=== PATIENT | female | born 1945 | race Caucasian/White ===

== ENCOUNTER → 2017-05-25 | Outpatient (CLI) | payer BC ==
[~2017-05-25] MED LIST: BIOT1CAP8 PO; CITA20TA9 PO; HYDR-5688 PO; LEVO100T7 PO; SIMV40TA2 PO; TAMS0.4C38 PO
[2017-05-25 13:41] LABS: URINE APPEARANCE CLEAR (CLEAR); URINE BILIRUBIN NEG (NEG); URINE COLOR DK YELLOW; URINE NITRITE NEG (NEG); URINE PH 6.5 (4.5-7.5); URINE SPECIFIC GRAVITY 1.022 (1.000-1.030); UROBILINOGEN NEG (NEG)
[2017-05-25 13:42] LABS: MANUAL MICROSCOPIC REQUIRED? NO; REVIEW REQ? NO
== END | disposition home or self-care (01) ==
LOC: C.LABBFT 11:24
PROVIDERS: ATTEND Physician Assistant Medical
DX: R39.9 Unspecified symptoms and signs involving the genitourinary system (principal)

== ENCOUNTER 2017-06-19 09:56 | Emergency (ER) | payer BC ==
[~2017-06-19] VITALS: Ht 154.9 cm; Wt 75.0 kg
[2017-06-19 10:03] VITALS: TEMP 36.5; Ht 154.9 cm; Wt 75.0 kg
[2017-06-19] MEDS ORDERED: SIMV40TA2 PO (10:23)
[2017-06-19] MEDS ORDERED: BIOT1CAP8 PO (10:23)
[2017-06-19] MEDS ORDERED: LEVO100T7 PO (10:23)
[2017-06-19] MEDS ORDERED: CITA20TA9 PO (10:23)
[2017-06-19] MEDS ORDERED: SODIUM CHLORIDE 0.9% 250ML 250 ML IV STA (10:53)
[2017-06-19] MEDS ORDERED: ONDANSETRON INJ 2 MG/ML 2 ML VIAL IV STA (10:53)
[2017-06-19] MEDS ORDERED: SODIUM CHLORIDE 0.9% 1000ML 1,000 ML IV STA (10:53)
[2017-06-19] MEDS ORDERED: MoRPHine SULFATE 2 MG/ML CARP IV STA ×2 (10:53→13:28)
[2017-06-19 11:19] LABS: BASO % 0.3 %; BASO ABS # 0.02 K/uL (0-0.2); COMPLETE YES; EOS % 1.6 %; HEMATOCRIT 46.3 % (37-47); IG% 0.3 %; LYMPH % 32.8 %; LYMPH ABS # 2.01 K/uL (1.2-3.4); MEAN CELL VOLUME 91.5 fL (80-100); MEAN CORPUSCULAR HEMOGLOBIN 31.6 pg (25-34); MEAN CORPUSCULAR HGB CONC 34.6 g/dl (32-36); MEAN PLATELET VOLUME 9.9 fL (7.4-10.4); MONO % 8.3 %; NEUT % 56.7 %; PLATELET COUNT 262 K/uL (130-400); RED BLOOD COUNT 5.06 M/uL (4.2-5.4); WHITE BLOOD COUNT 6.13 K/uL (4.8-10.8)
--- NOTE | 2017-06-19 11:25 | EMERGENCY ROOM VISIT NOTE ---
History Report prepared by Zev: Ken Singh Under the Supervision of: Dr. Elaina Taylor M.D. First contact with patient: 10:41 Chief Complaint: ABDOMINAL PAIN Stated Complaint: STOMACH PAINS Nursing Triage Summary: Pt c/o lower right abdominal pain x 1 hour. Associates Nausea, denies vomiting and diarrhea but "I've gone to the bathroom a lot" History of Present Illness The patient is a 71 year old female who presents to the Emergency Room with complaints of constant, right lower quadrant abdominal pain beginning this morning. The patient states that her pain is localized and does not radiate anywhere. She reports that she has been nauseous, vomiting, and having more frequent, normal, bowel movements. The patient notes that she did not eat anything out of the ordinary. She states that she takes an anxiety pill, cholesterol pill, and thyroid pill daily, and she thinks she vomited them up. The patient denies a history of diabetes mellitus, heart disease, kidney disease , back pain, hematochezia, and chest pain. She reports she has a history of a tubal ligation. Source of History: patient Onset: this morning Position: abdomen (RLQ) Quality: other (localized) Timing: constant Associated Symptoms: + nausea, + vomiting, No chest pain, No hematochezia Note: Associated symptoms: more frequent, normal, bowel movements Review of Systems See HPI for pertinent positives & negatives. A total of 10 systems reviewed and were otherwise negative. Past Medical & Surgical Medical Problems: (1) Anxiety Family History Patient reports no known family medical history. Social History Smoking Status: Never Smoker Marital Status: Housing Status: lives with significant other Occupation Status: retired Current/Historical Medications Scheduled Biotin (Biotin), 1 MG PO QAM Citalopram Hydrobromide (Celexa), 20 MG PO QAM Levothyroxine Sodium (Levothyroxine Sodium), 100 MCG PO QAM Simvastatin (Zocor), 40 MG PO QPM Tamsulosin Hcl (Flomax), 0.4 MG PO DAILY Scheduled PRN Hydrocodone/Acetaminophen 5MG/325MG ([place] 5MG/325MG), 1 TABLET PO q4-6 PRN for Pain Allergies Coded Allergies: No Known Allergies (Unverified , 06/19/17) Physical Exam Vital Signs Date Time Temp Pulse Resp B/P (MAP) Pulse Ox O2 Delivery O2 Flow Rate FiO2 06/19/17 13:52 67 16 184/90 96 Room Air 06/19/17 11:55 61 20 189/98 96 Room Air 06/19/17 11:19 70 06/19/17 11:16 66 16 181/98 99 Room Air 06/19/17 10:03 36.5 68 20 180/97 99 Room Air Physical Exam Vital signs reviewed. General: Well-appearing 71 year old female, in no significant distress. HEENT: No scleral icterus, PERRLA, neck supple. Atraumatic. Cardiovascular: Regular rate and rhythm, no extra sounds. Pulmonary: Clear to auscultation bilaterally, normal work of breathing. Abdomen: Soft, nondistended, positive bowel sounds. Mildly tender to palpation over the right lower quadrant, no rebounding, no guarding Musculoskeletal: Atraumatic, no peripheral edema. Neurologic: Patient awake alert and oriented x 3, full strength in all 4 extremities. Cranial nerves 2 through 12 grossly intact. Skin: Warm, dry, no rash Medical Decision & Procedures ER Provider Diagnostic Interpretation: ABD/PELVIS IV CONTRAST ONLY HISTORY: 71 years-old Female acute right lower quadrant abdominal pain COMPARISON: CT abdomen 10/08/2008 TECHNIQUE: Multiple axial CT images of the abdomen and pelvis were obtained following the intravenous administration of 93 mL Optiray 320. A dose lowering technique was used consistent with the principals of AZUCENA. FINDINGS: There is mild bibasilar atelectasis. No pneumoperitoneum identified. The imaged inferior cardiac chambers are unremarkable. The liver, spleen, pancreas and adrenal glands are unremarkable. There is a focal area of fundal enhancement involving the gallbladder suggesting fundal adenomyomatosis or polyp, 6 x 1 x 7 mm. The left kidney and ureter appear normal. There is a 2 x 3 mm stone of the right ureterovesicular junction which causes moderate right-sided hydroureteronephrosis with delayed nephrogram and mild perinephric edema. There is abnormal contrast with ill-defined margins seen adjacent to the stone suggesting contrast collection from the ureter. Enhancing mass within this distribution is thought to be less likely. Urinary bladder is unremarkable. Calcified fibroids of the right fundal uterus are noted. There is a mild amount of nonspecific endometrial fluid present. Moderate atherosclerotic plaquing of the abdominal aorta is present. No bulky adenopathy. There is no bowel obstruction. The majority of the colon is collapsed. There is no evidence of acute appendicitis. Soft tissues are unremarkable. Facet arthropathy is seen throughout the lumbar spine. IMPRESSION: 1. 2 x 3 mm stone of the right ureterovesicular junction causes moderate right-sided hydroureteronephrosis with delayed renal function. Additionally, there is abnormal ill-defined contrast seen near the right ureterovesicular junction adjacent to the stone suggesting contrast pulling from the obstruction. Abnormal enhancement within a mural bladder neoplasm is thought to be less likely. This can be confirmed with cystoscopy. 2. Small polyp or fundal adenomyomatosis of the gallbladder. 3. Partially calcified fundal uterine fibroid. Nonspecific fluid is seen within the endometrial cavity. These findings could be further evaluated with dedicated pelvic ultrasound. The above report was generated using voice recognition software. It may contain grammatical, syntax or spelling errors. Electronically signed by: Bandar Rangel M.D. 06/19/2017 1:10 PM Dictated Date/Time: 06/19/2017 1:03 PM Laboratory Results 06/19/17 10:15 Red Blood Count 5.06, Mean Corpuscular Volume 91.5, Mean Corpuscular Hemoglobin 31.6, Mean Corpuscular Hemoglobin Concent 34.6, Mean Platelet Volume 9.9, Neutrophils (%) (Auto) 56.7, Lymphocytes (%) (Auto) 32.8, Monocytes (%) (Auto) 8.3, Eosinophils (%) (Auto) 1.6, Basophils (%) (Auto) 0.3, Neutrophils # (Auto) 3.47, Lymphocytes # (Auto) 2.01, Monocytes # (Auto) 0.51, Eosinophils # (Auto) 0.10, Basophils # (Auto) 0.02 06/19/17 10:15 Test 06/19/17 10:15 White Blood Count 6.13 K/uL (4.8-10.8) Red Blood Count 5.06 M/uL (4.2-5.4) Hemoglobin 16.0 g/dL (12.0-16.0) Hematocrit 46.3 % (37-47) Mean Corpuscular Volume 91.5 fL (80-100) Mean Corpuscular Hemoglobin 31.6 pg (25-34) Mean Corpuscular Hemoglobin Concent 34.6 g/dl (32-36) Platelet Count 262 K/uL (130-400) Mean Platelet Volume 9.9 fL (7.4-10.4) Neutrophils (%) (Auto) 56.7 % Lymphocytes (%) (Auto) 32.8 % Monocytes (%) (Auto) 8.3 % Eosinophils (%) (Auto) 1.6 % Basophils (%) (Auto) 0.3 % Neutrophils # (Auto) 3.47 K/uL (1.4-6.5) Lymphocytes # (Auto) 2.01 K/uL (1.2-3.4) Monocytes # (Auto) 0.51 K/uL (0.11-0.59) Eosinophils # (Auto) 0.10 K/uL (0-0.5) Basophils # (Auto) 0.02 K/uL (0-0.2) RDW Standard Deviation 42.9 fL (36.4-46.3) RDW Coefficient of Variation 12.9 % (11.5-14.5) Immature Granulocyte % (Auto) 0.3 % Immature Granulocyte # (Auto) 0.02 K/uL (0.00-0.02) Urine Color YELLOW Urine Appearance TURBID (CLEAR) Urine pH 8.5 (4.5-7.5) Urine Specific [place] 1.016 (1.000-1.030) Urine Protein 1+ (NEG) Urine Glucose (UA) NEG (NEG) Urine Ketones NEG (NEG) Urine Occult Blood NEG (NEG) Urine Nitrite NEG (NEG) Urine Bilirubin NEG (NEG) Urine Urobilinogen NEG (NEG) Urine Leukocyte Esterase NEG (NEG) Urine WBC (Auto) 1-5 /hpf (0-5) Urine RBC (Auto) 0-4 /hpf (0-4) Urine Hyaline Casts (Auto) 0 /lpf (0-5) Urine Epithelial Cells (Auto) 10-20 /lpf (0-5) Urine Bacteria (Auto) NEG (NEG) Anion Gap 10.0 mmol/L (3-11) Est Creatinine Clear Calc Drug Dose 57.4 ml/min Estimated GFR () 82.9 Estimated GFR (Non- 71.5 BUN/Creatinine Ratio 14.1 (10-20) Calcium Level 9.2 mg/dl (8.5-10.1) Total Bilirubin 0.5 mg/dl (0.2-1) Direct Bilirubin mg/dl (0-0.2) Aspartate Amino Transf (AST/SGOT) 19 U/L (15-37) Alanine Aminotransferase (ALT/SGPT) 21 U/L (12-78) Alkaline Phosphatase 101 U/L (45-117) Total Protein 7.8 gm/dl (6.4-8.2) Albumin 3.9 gm/dl (3.4-5.0) Lipase 143 U/L (73-393) Chemistry Specimen Hemolysis Laboratory results per my review. Medications Administered Medications (Trade) Dose Ordered Sig/Tari Route Start Time Stop Time Status Last Admin Dose Admin Sodium Chloride 250 ml @ 999 mls/hr Q16M STAT IV 06/19/17 10:53 06/19/17 11:08 DC 06/19/17 11:14 999 MLS/HR Sodium Chloride 1,000 ml @ 125 mls/hr Q8H STAT IV 06/19/17 10:53 06/19/17 14:28 DC 06/19/17 11:14 125 MLS/HR Ondansetron HCl (Zofran Inj) 4 mg NOW STAT IV 06/19/17 10:53 06/19/17 10:55 DC 06/19/17 11:14 4 MG Morphine Sulfate (MoRPHine SULFATE INJ) 2 mg NOW STAT IV 06/19/17 10:53 06/19/17 10:55 DC 06/19/17 11:14 2 MG Tamsulosin HCl (Flomax Cap) 0.4 mg NOW ONCE PO 06/19/17 13:30 06/19/17 13:31 DC 06/19/17 13:47 0.4 MG Morphine Sulfate (MoRPHine SULFATE INJ) 2 mg NOW STAT IV 06/19/17 13:28 06/19/17 13:30 DC 06/19/17 13:47 2 MG ED Course 1051: Past medical records reviewed. The patient was evaluated in room B04B. A complete history and physical examination was performed. 1053: Ordered Morphine Sulfate 2mg IV, Ondansetron HCl 4mg IV, Sodium Chloride 1000 ml @ 125 mls/hr IV, Sodium Chloride 250 ml @ 999 mls/hr IV 1328: Ordered Morphine Sulfate 2mg IV 1330: Ordered Tamsulosin HCl 0.4mg PO 1331: Upon reevaluation, the patient appeared to have improvement of her symptoms. She still have mild pain, and she is urinating for frequently. I discussed findings with her. She verbalized agreement of the treatment plan. The patient was discharged home. Medical Decision Differential diagnosis: Etiologies such as appendicitis, diverticulitis, PUD, biliary pathology, UTI, pancreatitis, obstruction, mesenteric ischemia, aortic pathology, infections, inflammatory bowel disease, renal colic, as well as others were entertained. This patient was evaluated and appeared to be in some discomfort. IV access was obtained and laboratory work was drawn. Patient was placed on the bus driver/monitor. She was hydrated with normal saline solution. Patient was given IV morphine 2 and Zofran for her pain. CT scan of the abdomen and pelvis was performed and reveals a right ureteral calculus with obstructive changes. The patient was informed of the findings. She was feeling much improved on my reevaluation. Patient was given Flomax. She was discharged with a prescription for [place]. She was advised not to drive or to take Tylenol with this medication. Patient will follow-up with urology and discussed the CT findings. She will return to the ER for worsening of symptoms or any medical concerns. Medication Reconcilliation Current Medication List: was personally reviewed by me Blood Pressure Screening Patient's blood pressure: Elevated blood pressure Blood pressure disposition: Referred to PCP Impression Primary Impression: Renal colic on right side Scribe Attestation The scribe's documentation has been prepared under my direction and personally reviewed by me in its entirety. I confirm that the note above accurately reflects all work, treatment, procedures, and medical decision making performed by me. Departure Information Dispostion Home / Self-Care Prescriptions Tamsulosin Hcl (FLOMAX) 0.4 Mg Cap 0.4 MG PO DAILY for 7 Days, #7 CAP Prov: Elaina Taylor M.D. 06/19/17 Hydrocodone/Acetaminophen 5MG/325MG ([place] 5MG/325MG) Tab 1 TABLET PO q4-6 Y for Pain, #20 TAB Prov: Elaina Taylor M.D. 06/19/17 Referrals Vic Shannon M.D. (PCP) Myla Womack, Kim Bynum M.D. Forms Call Back Authorization, HOME CARE DOCUMENTATION FORM, IMPORTANT VISIT INFORMATION Patient Instructions Kidney Stones Expectant Therapy, My [facility] Additional Instructions Diagnosis: Renal colic Case management will help you establish an appointment with urology for this week. Flomax 0.4 mg daily. Hydrocodone/acetaminophen one tablet every 4 hours as needed for pain. Do not drive or take Tylenol with this medication. Colace 100 mg twice daily for stool softening while you're on the narcotics. Drink plenty of clear fluids. You will need evaluation by [employer] SALES REPRESENTATIVE due to uterus calcifications Return to the ED for worsening of symptoms or any medical concerns.
[2017-06-19] MEDS ORDERED: OPTIRAY 320 IV PRN (11:30)
[2017-06-19 11:45] LABS: ALKALINE PHOSPHATASE 101 U/L (45-117); ALT/SGPT 21 U/L (12-78); AST/SGOT 19 U/L (15-37); BLOOD UREA NITROGEN 12 mg/dl (7-18); BUN/CREATININE RATIO 14.1 (10-20); CALCIUM 9.2 mg/dl (8.5-10.1); CARBON DIOXIDE 27 mmol/L (21-32); CHLORIDE 105 mmol/L (98-107); CREATININE 0.82 mg/dl (0.60-1.20); GLUCOSE 107 mg/dl (70-99); POTASSIUM 3.4 mmol/L (3.5-5.1); SODIUM 142 mmol/L (136-145)
[2017-06-19 11:48] LABS: URINE APPEARANCE TURBID (CLEAR); URINE BILIRUBIN NEG (NEG); URINE COLOR YELLOW; URINE NITRITE NEG (NEG); URINE PH 8.5 (4.5-7.5); URINE SPECIFIC GRAVITY 1.016 (1.000-1.030); UROBILINOGEN NEG (NEG); ZZUR CULT IF INDIC CLEAN CATCH NO
[2017-06-19 12:06] LABS: MANUAL MICROSCOPIC REQUIRED? NO; REVIEW REQ? NO; SULFASALICYLIC ACID POS (NEG)
--- NOTE | 2017-06-19 13:11 | DIAGNOSTIC IMAGING REPORT ---
ABD/PELVIS IV CONTRAST ONLY HISTORY: 71 years-old Female acute right lower quadrant abdominal pain COMPARISON: CT abdomen 10/08/2008 TECHNIQUE: Multiple axial CT images of the abdomen and pelvis were obtained following the intravenous administration of 93 mL Optiray 320. A dose lowering technique was used consistent with the principals of AZUCENA. FINDINGS: There is mild bibasilar atelectasis. No pneumoperitoneum identified. The imaged inferior cardiac chambers are unremarkable. The liver, spleen, pancreas and adrenal glands are unremarkable. There is a focal area of fundal enhancement involving the gallbladder suggesting fundal adenomyomatosis or polyp, 6 x 1 x 7 mm. The left kidney and ureter appear normal. There is a 2 x 3 mm stone of the right ureterovesicular junction which causes moderate right-sided hydroureteronephrosis with delayed nephrogram and mild perinephric edema. There is abnormal contrast with ill-defined margins seen adjacent to the stone suggesting contrast collection from the ureter. Enhancing mass within this distribution is thought to be less likely. Urinary bladder is unremarkable. Calcified fibroids of the right fundal uterus are noted. There is a mild amount of nonspecific endometrial fluid present. Moderate atherosclerotic plaquing of the abdominal aorta is present. No bulky adenopathy. There is no bowel obstruction. The majority of the colon is collapsed. There is no evidence of acute appendicitis. Soft tissues are unremarkable. Facet arthropathy is seen throughout the lumbar spine. IMPRESSION: 1. 2 x 3 mm stone of the right ureterovesicular junction causes moderate right-sided hydroureteronephrosis with delayed renal function. Additionally, there is abnormal ill-defined contrast seen near the right ureterovesicular junction adjacent to the stone suggesting contrast pulling from the obstruction. Abnormal enhancement within a mural bladder neoplasm is thought to be less likely. This can be confirmed with cystoscopy. 2. Small polyp or fundal adenomyomatosis of the gallbladder. 3. Partially calcified fundal uterine fibroid. Nonspecific fluid is seen within the endometrial cavity. These findings could be further evaluated with dedicated pelvic ultrasound. The above report was generated using voice recognition software. It may contain grammatical, syntax or spelling errors. Electronically signed by: aBndar Rangel M.D. 06/19/2017 1:10 PM Dictated Date/Time: 06/19/2017 1:03 PM
[2017-06-19] MEDS ORDERED: TAMSULOSIN HCL 0.4 MG CAP PO ONE (13:30)
[2017-06-19 13:52] VITALS: BP 184/90; PULSE 67; O2SAT 96
[2017-06-19] MEDS ORDERED: HYDR-5688 PO (13:57)
[2017-06-19] MEDS ORDERED: TAMS0.4C38 PO (14:13)
== END 2017-06-19 14:20 | disposition home or self-care (01) ==
LOC: C.EDB 09:57
DX: N23 Unspecified renal colic (principal); F41.9 Anxiety disorder, unspecified

== ENCOUNTER → 2017-07-08 | Outpatient (CLI) | payer BC ==
[~2017-07-08] MED LIST changes: +OPTIRAY 300 IV PRN; -TAMS0.4C38 PO
--- NOTE | 2017-07-08 16:13 | DIAGNOSTIC IMAGING REPORT ---
IVP W/OR W/O TOMOGRAMS CLINICAL HISTORY: N13.30 hydronephrosis COMPARISON STUDY: CT scan dated 06/19/2017 FINDINGS: The supervisor winter film revealed multiple pelvic basin calcifications, which likely correspond to uterine and periuterine calcifications as were visualized on the recent CT scan. No renal calculi are visualized. The patient was injected with 100 cc of Optiray 300. The lamina film reveals prompt bilateral nephrograms. The right kidney measures 12.1 cm in length. The left kidney measures 13.3 cm in length. Single nondilated ureters drain each kidney. There is mild fullness the right renal pelvis. There was good drainage status post voiding. There is a small post void residual. No obstructing calculi are identified. IMPRESSION: 1. Mild fullness of the right renal collecting system, likely representing a residua from the previously identified obstruction 2. No ureteral calculi are visualized on this intravenous urogram study. Electronically signed by: Taiwo Carter M.D. 07/08/2017 4:05 PM Dictated Date/Time: 07/08/2017 4:02 PM
== END | disposition home or self-care (01) ==
LOC: C.RAD 14:08
PROVIDERS: ATTEND Urology
DX: N13.30 Unspecified hydronephrosis (principal)

== ENCOUNTER → 2017-09-26 | Day surgery (SDC) | payer BC, OTHER ==
[2017-09-14 13:01] VITALS: BMI 31.0
--- NOTE | 2017-09-14 13:31 | PAT Medication Instructions ---
Service Date Sep 14, 2017. 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 Instructions For Your Scheduled Surgery -Contact your surgeon for instructions for: Ibuprofen (Advil), 400 MG PO PRN - Hold the following medications the morning of surgery: Biotin (Biotin Maximum), 10,000 MCG PO QAM Calcium Carbonate-Vitamin D (Calcium + D), 1 TAB PO Q2D - Take the following medications the morning of surgery with a sip of water: Citalopram Hydrobromide (Celexa), 20 MG PO QAM Levothyroxine Sodium (Levothyroxine Sodium), 100 MCG PO QAM Simvastatin (Zocor), 40 MG PO QAM Acetaminophen (Tylenol), 1,000 MG PO PRN (if needed, can be taken up t fur hours before surgery) - Take the following medications as scheduled the night before surgery: [Unisom], 1 TAB PO HS PRN for RN (if needed) Acetaminophen (Tylenol), 1,000 MG PO PRN (if needed) If you have any questions please call us at [phone] or [phone] or [phone]
--- NOTE | 2017-09-14 14:21 | DIAGNOSTIC IMAGING REPORT ---
CHEST 2 VIEWS ROUTINE CLINICAL HISTORY: Preoperative chest COMPARISON STUDY: November 2006 FINDINGS: The heart is the upper limits of normal in size. There is no failure. There is no focal pulmonary consolidation. There are no pleural effusions.[ IMPRESSION: No active disease in the chest. Electronically signed by: Taiwo Carter M.D. 09/14/2017 2:20 PM Dictated Date/Time: 09/14/2017 2:19 PM
[2017-09-14 14:45] LABS: BASO % 0.2 %; BASO ABS # 0.01 K/uL (0-0.2); COMPLETE YES; EOS % 2.2 %; HEMATOCRIT 44.7 % (37-47); IG% 0.2 %; LYMPH % 27.5 %; LYMPH ABS # 1.51 K/uL (1.2-3.4); MEAN CELL VOLUME 92.7 fL (80-100); MEAN CORPUSCULAR HEMOGLOBIN 31.1 pg (25-34); MEAN CORPUSCULAR HGB CONC 33.6 g/dl (32-36); MEAN PLATELET VOLUME 9.8 fL (7.4-10.4); MONO % 8.6 %; NEUT % 61.3 %; PLATELET COUNT 233 K/uL (130-400); RED BLOOD COUNT 4.82 M/uL (4.2-5.4); WHITE BLOOD COUNT 5.49 K/uL (4.8-10.8)
[2017-09-14 15:12] LABS: BUN/CREATININE RATIO 22.4 (10-20); CALCIUM 8.7 mg/dl (8.5-10.1); CREATININE 0.65 mg/dl (0.60-1.20); POTASSIUM 4.2 mmol/L (3.5-5.1)
[~2017-09-26] VITALS: Ht 154.9 cm; Wt 75.8 kg
[~2017-09-26] MED LIST changes: +ACET-1256 PO; +ATROPINE SULFATE 0.1 MG/ML 5ML SYR IV PRN; +BACITRACIN 50000 UNIT VIAL ONE; -BIOT1CAP8 PO; +BUPIVACAINE/EPINEPHRINE 0.5% MPF 1:200,000 30 ML VIAL ONE; +CALC600T9 PO; +CIPROFLOXACIN / D5W 400 MG IV SCH; +CLINDAMYCIN PHOS 2% VAG CR 40 GM TUBE PV ONE; +CONRAY 30% 150ML BOTTLE ONE; +DEXAMETHASONE SOD INJ 4 MG/ML VIAL ONE; +DOCU-94 PO; +EpHEDrine SULFATE 50MG/5ML SYR ONE; +EpHEDrine SULFATE INJ 50 MG/ML AMP IV PRN; +FENTANYL CITRATE INJ 50 MCG/1 ML 2 ML VIAL IV PRN; +FENTANYL CITRATE INJ 50 MCG/1 ML 2 ML VIAL ONE; +FLUMAZENIL 0.1 MG/1 ML 10 ML VIAL IV ONE; -HYDR-5688 PO; +HYDROmorphone INJ 1 MG/ML SYR IV PRN; +IBUP-1050 PO; +LABETALOL HCL IV 5 MG/ML 20ML IV PRN; +LACTATED RINGER'S 1000ML 1,000 ML IV SCH; +LIDOCAINE HCL 2% 2 ML VIAL (20MG/ML) ONE; +MEPERIDINE HCL 25 MG/ML CARP IV PRN; +MIDAZOLAM HCL 1 MG/ML 2ML VIAL ONE; +ONDANSETRON INJ 2 MG/ML 2 ML VIAL IV PRN; +ONDANSETRON INJ 2 MG/ML 2 ML VIAL ONE; -OPTIRAY 300 IV PRN; +OXYC-57 PO; +OXYCODONE/ACETAMINOPHEN 5-325 TAB PO PRN; +PHEN-876 PO; +PHENAZOPYRIDINE HCL 200 MG TAB PO PRN; +PROPOFOL IV EMULSION 10 MG/ML 20 ML VIAL IV ONE; +SULF800T23 PO; +UNISOM PO; +[UNRECOGNIZED DRUG - CODE] PO
[2017-09-26 05:54] VITALS: BP 146/88; PULSE 78; TEMP 36.7; O2SAT 96; Ht 154.9 cm; Wt 75.8 kg
--- NOTE | 2017-09-26 07:13 | History & Physical Bridge Note ---
H&P Re-Evaluation Bridge Note: I have examined the patient, reviewed the History & Physical and in the interval since the performance of the History & Physical I have noted the following changes of clinical significance: No changes noted
--- NOTE | 2017-09-26 08:38 | Discharge Instructions ---
Discharge Instructions Date of Service Sep 26, 2017. Admission Reason for Admission: Stress Incontinence, Urinary Frequency Discharge Discharge Diagnosis / Problem: Stress urinary incontinence, urinary frequency Discharge Goals Goal(s): Decrease discomfort, Improve disease control, Therapeutic intervention Activity Recommendations Activity Limitations: as noted below Lifting Limitations: no more than 10 pounds (x 6 weeks) Exercise/Sports Limitations: rest today, gradually increase as tolerated May Resume Sexual Activity: after follow-up appointment (after cleared by Dr. Canales) Shower/Bathe: tomorrow (showers only, no tub baths) Driving or Machine Use: resume 3 days after discharge (Do not drive while taking narcotics. ) . Instructions / Follow-Up Instructions / Follow-Up 1. Finish all of the antibiotic Bactrim DS as prescribed. 2. Follow-up with Dr. Canales as scheduled. Please call our office at [phone] if you need to reschedule for any reason. Current Hospital Diet Patient's current hospital diet: Discharge Diet Recommended Diet: Regular Diet Procedures Procedures Performed: Cystoscopy; Mid-Urethral Sling; Left Retrograde Pyelogram Pending Studies Studies pending at discharge: no Medical Emergencies . Who to Call and When: Medical Emergencies: If at any time you feel your situation is an emergency, please call 911 immediately. . Non-Emergent Contact Non-Emergency issues call your: Urologist Call Non-Emergent contact if: temperature is above 101.5, your pain is not controlled, your pain is worsening, your pain is unusual for you, your pain is concerning you, wound has increased drainage, wound has increased redness, wound has increased pain, you have any medication questions . . "Provider Documentation" section prepared by Myla Womack. . VTE Core Measure Inpt VTE Proph given/why not?: SCD's [place] Drug Monitoring Program Search Results: patient reviewed within database, no issues identified
--- NOTE | 2017-09-26 08:43 | [facility] Post Operative Brief Note ---
Immediate Operative Summary Operative Date Sep 26, 2017. Pre-Operative Diagnosis Female stress incontinence Post-Operative Diagnosis Female stress incontinence Procedure(s) Performed Cystoscopy; Mid-Urethral Sling; Left Retrograde Pyelogram Surgeon Dr. Toby Canales Blow Molding Machine Operator Surgeon(s) Maxx Womack NP Estimated Blood Loss 40 mL Findings Close trocar pass on left without bladder injury - ureter checked with RPG, no injury noted. Good sling position in tension-free location. Specimens None per surgeon Drains NA Anesthesia GALMA + local Complication(s) None Disposition Recovery Room / PACU
--- NOTE | 2017-09-26 08:50 | [facility] Operative Report ---
Operative Report Operative Date Sep 26, 2017. Pre-Operative Diagnosis Female stress incontinence Post-Operative Diagnosis Female stress incontinence Procedure(s) Performed Cystoscopy; Mid-Urethral Sling; Left Retrograde Pyelogram Surgeon Dr. Toby Canales Crisis Counselor Surgeon(s) Maxx Womack NP Estimated Blood Loss 40 mL Findings Close trocar pass on left without bladder injury - ureter checked with RPG, no injury noted. Good sling position in tension-free location. Specimens None per surgeon Drains NA Anesthesia GALMA + local Complication(s) None Disposition Recovery Room / PACU Indications 71-year-old female with a history of stress urinary incontinence and significant bother who is here today for a mid urethral sling to manage her disease. Please see H&P for further details. Intravenous antibiotics were provided and SCDs used for DVT prophylaxis. Informed consent reviewed with the patient preoperatively. Description of Procedure Patient was properly identified and brought into the operative suite after identification of appropriate consent of the chart. General anesthesia with laryngeal mask was initiated and patient was prepped and draped in the standard fashion for this procedure. Full timeout procedure was followed. Bladder was drained with a 16 Citizen [place] Coleman catheter patient was placed in the high lithotomy position. Bladder was drained regularly throughout the procedure. Allis clamp was placed on the meatus and the vaginal mucosa at the level of the urethra was anesthetized using local with epinephrine with excellent blanching. This was divided in the midline using a 15 blade and Metzenbaum scissors and peanuts were used to dissect a tract for the sling material up to the pelvic sidewall. Patient was noted to have a midline cystocele more pronounced on the left than the right. Skin incisions were made after local anesthesia at the anterior aspect of the obturator fossa at the same level as the clitoris. Using the appropriate trocar a trans-obturator pass was made onto the surgeon's finger. The left side was done initially on the initial pass buttonholing of the vaginal mucosa was appreciated due to a high vaginal apex. Trocar was brought back and passed again onto the surgeon's finger. However on this passage was felt to be somewhat close to the bladder. Bladder was surveyed with the 70 cystoscope and a 21 Citizen [place] sheath without moving the trocar which was appreciated to be outside the bladder although again somewhat close to the bladder itself. This was again relocated to an appropriate path with better success this time. Bladder was again evaluated with the cystoscope and 70 lenses noted to be intact with better position. Sling material was attached brought into the normal location. The trocar pass on the right side was less eventful with a correct pass on the first try. Cystoscopy was repeated and again good location was appreciated. Seen the passage of the trocar in close proximity to the bladder on the left-hand side decision was made to proceed with a retrograde pyelography on this side to ensure a lack of unappreciated ureteral injury. This was performed and the ureter was noted to be perfectly normal throughout its entire length with no hydronephrosis or contrast extravasation. Bladder was drained and Coleman catheter was replaced. Sling was brought to appropriate tension-free position in the midline under the urethra and then tensioning sutures were removed as well as the sling sheath. Excellent location was appreciated. Sling was divided short at the level of the skin and Dermabond dressing was placed. Vaginal incision was closed using a 0 Vicryl suture in a running fashion. Vaginal packing with clindamycin was performed and Coleman catheter was removed. Anesthesia was reversed patient was transferred to the recovery room in stable condition. Follow-up care: Patient was provided with a prescription for antibiotics, pain medication, Pyridium and Colace. Outpatient appointment is confirmed. Activity limitations are confirmed with the patient and patient's family. Postoperative instructions in the chart. I attest to the content of the Intraoperative Record and any orders documented therein. Any exceptions are noted below.
[2017-09-26 09:30] VITALS: BP 159/72; PULSE 76; TEMP 36.4; O2SAT 94
--- NOTE | 2017-09-26 09:50 | Anesthesiology Progress Note ---
Anesthesia Post Op Note Date & Time Sep 26, 2017 at 09:50 Vital Signs Pain Intensity: 1 Vital Signs Past 12 Hours Date Time Temp Pulse Resp B/P (MAP) Pulse Ox O2 Delivery O2 Flow Rate FiO2 09/26/17 09:30 36.4 76 16 159/72 94 Room Air 09/26/17 09:15 36.0 77 12 146/79 95 Room Air 09/26/17 09:05 71 12 115/91 100 Room Air 09/26/17 08:55 71 18 141/95 100 Oxymask 10 09/26/17 08:45 77 16 143/87 100 Oxymask 10 09/26/17 08:37 36.0 84 12 144/95 100 Oxymask 10 09/26/17 05:54 36.7 78 18 146/88 (107) 96 Room Air Notes Mental Status: alert / awake / arousable, participated in evaluation Pt Amnestic to Procedure: Yes Nausea / Vomiting: adequately controlled Pain: adequately controlled Airway Patency, RR, SpO2: stable & adequate BP & HR: stable & adequate Hydration State: stable & adequate Anesthetic Complications: no major complications apparent
[2017-09-26 10:00] VITALS: BP 125/91; PULSE 90; O2SAT 93
[2017-09-26 10:30] VITALS: BP 118/63; PULSE 90; TEMP 36.5; O2SAT 96
--- NOTE | 2017-09-26 11:25 | DIAGNOSTIC IMAGING REPORT ---
FLUOROSCOPIC IMAGES FROM LEFT RETROGRADE EXAM CLINICAL HISTORY: Left retrograde study. COMPARISON STUDY: CT of the abdomen and pelvis June 19, 2017 and IVP July 08, 2017. Fluoroscopy time: 19 seconds. FINDINGS: 7 fluoroscopic images from a left retrograde exam were submitted for interpretation. There is no left hydronephrosis or hydroureter. No filling defects are identified on this examination. IMPRESSION: Unremarkable left retrograde exam. Electronically signed by: Esvin Hammonds M.D. 09/26/2017 11:23 AM Dictated Date/Time: 09/26/2017 11:21 AM
== END | disposition home or self-care (01) ==
LOC: C.ACU 05:10
PROVIDERS: ATTEND Urology
DX: N39.3 Stress incontinence (female) (male) (principal); E78.00 Pure hypercholesterolemia, unspecified; E03.9 Hypothyroidism, unspecified; K21.9 Gastro-esophageal reflux disease without esophagitis; M85.80 Other specified disorders of bone density and structure, unspecified site; E55.9 Vitamin D deficiency, unspecified; Z79.899 Other long term (current) drug therapy

== ENCOUNTER → 2017-10-14 | Outpatient (CLI) | payer BC, OTHER ==
[~2017-10-14] MED LIST changes: -ATROPINE SULFATE 0.1 MG/ML 5ML SYR IV PRN; -BACITRACIN 50000 UNIT VIAL ONE; -BUPIVACAINE/EPINEPHRINE 0.5% MPF 1:200,000 30 ML VIAL ONE; -CIPROFLOXACIN / D5W 400 MG IV SCH; -CLINDAMYCIN PHOS 2% VAG CR 40 GM TUBE PV ONE; -CONRAY 30% 150ML BOTTLE ONE; -DEXAMETHASONE SOD INJ 4 MG/ML VIAL ONE; -DOCU-94 PO; -EpHEDrine SULFATE 50MG/5ML SYR ONE; -EpHEDrine SULFATE INJ 50 MG/ML AMP IV PRN; -FENTANYL CITRATE INJ 50 MCG/1 ML 2 ML VIAL IV PRN; -FENTANYL CITRATE INJ 50 MCG/1 ML 2 ML VIAL ONE; -FLUMAZENIL 0.1 MG/1 ML 10 ML VIAL IV ONE; -HYDROmorphone INJ 1 MG/ML SYR IV PRN; -LABETALOL HCL IV 5 MG/ML 20ML IV PRN; -LACTATED RINGER'S 1000ML 1,000 ML IV SCH; -LIDOCAINE HCL 2% 2 ML VIAL (20MG/ML) ONE; -MEPERIDINE HCL 25 MG/ML CARP IV PRN; -MIDAZOLAM HCL 1 MG/ML 2ML VIAL ONE; -ONDANSETRON INJ 2 MG/ML 2 ML VIAL IV PRN; -ONDANSETRON INJ 2 MG/ML 2 ML VIAL ONE; -OXYCODONE/ACETAMINOPHEN 5-325 TAB PO PRN; -PHENAZOPYRIDINE HCL 200 MG TAB PO PRN; -PROPOFOL IV EMULSION 10 MG/ML 20 ML VIAL IV ONE; -SULF800T23 PO
== END | disposition home or self-care (01) ==
LOC: C.LABBFT 10:45
PROVIDERS: ATTEND Urology
DX: N39.0 Urinary tract infection, site not specified (principal); R35.0 Frequency of micturition

== ENCOUNTER → 2017-12-14 | Outpatient (CLI) | payer BC, OTHER ==
[2017-12-14 12:56] LABS: BASO % 0.4 %; BASO ABS # 0.02 K/uL (0-0.2); EOS % 2.6 %; EOS ABS # 0.14 K/uL (0-0.5); HEMATOCRIT 45.4 % (37-47); HEMOGLOBIN 15.7 g/dL (12.0-16.0); IG# 0.01 K/uL (0.00-0.02); MEAN CELL VOLUME 90.8 fL (80-100); MEAN CORPUSCULAR HEMOGLOBIN 31.4 pg (25-34); MEAN CORPUSCULAR HGB CONC 34.6 g/dl (32-36); MEAN PLATELET VOLUME 9.6 fL (7.4-10.4); MONO % 7.5 %; NEUT % 57.3 %; NEUT ABS # 3.05 K/uL (1.4-6.5); PLATELET COUNT 237 K/uL (130-400); RED CELL DISTRIBUTION WIDTH SD 42.7 fL (36.4-46.3); WHITE BLOOD COUNT 5.32 K/uL (4.8-10.8)
[2017-12-14 13:43] LABS: ALBUMIN 3.8 gm/dl (3.4-5.0); ALT/SGPT 20 U/L (12-78); AST/SGOT 13 U/L (15-37); BLOOD UREA NITROGEN 15 mg/dl (7-18); CALCIUM 9.2 mg/dl (8.5-10.1); CARBON DIOXIDE 28 mmol/L (21-32); CREATININE 0.76 mg/dl (0.60-1.20); GLUCOSE 93 mg/dl (70-99); POTASSIUM 4.1 mmol/L (3.5-5.1); SODIUM 138 mmol/L (136-145)
[2017-12-14 13:54] LABS: ALKALINE PHOSPHATASE 83 U/L (45-117); CHOLESTEROL 196 mg/dl (0-200); LDL CHOLESTEROL CALCULATED 98 mg/dl; TOTAL PROTEIN 7.5 gm/dl (6.4-8.2)
== END | disposition home or self-care (01) ==
LOC: C.LABBFT 10:34
PROVIDERS: ATTEND Internal Medicine
DX: E78.00 Pure hypercholesterolemia, unspecified (principal); E03.9 Hypothyroidism, unspecified

== ENCOUNTER 2019-03-05 19:39 | Inpatient (IN) ==
[2019-03-05] MEDS ORDERED: HYDROmorphone INJ 0.5 MG/0.5 ML SYR IV PRN (20:20)
[2019-03-05] MEDS ORDERED: ONDANSETRON INJ 2 MG/ML 2 ML VIAL IV STA (20:20)
[2019-03-05] MEDS ORDERED: ALBUT/IPRATROP 3MG/0.5MG NEB 3 ML VIAL NEB ONE (20:20)
[2019-03-05 20:44] LABS: Basophils # (auto) 0.03 K/uL (0-0.2); Basophils % (auto) 0.4 %; Eosinophils % (auto) 2.6 %; Hematocrit (blood only) 45.4 % (37-47); Hemoglobin 16.2 g/dL (12.0-16.0); Immature Granulocytes # (auto) 0.02 K/uL (0.00-0.02); Immature Granulocytes % (auto) 0.3 %; Lymphocytes # (auto) 2.07 K/uL (1.2-3.4); Lymphocytes % (auto) 26.7 %; Mean Corpuscular Hgb Conc 35.7 g/dL (32-36); Mean Corpuscular Volume 89.4 fL (80-100); Mean Platelet Volume 9.5 fL (7.4-10.4); Monocytes # (auto) 0.55 K/uL (0.11-0.59); Monocytes % (auto) 7.1 %; Neutrophils # (auto) 4.88 K/uL (1.4-6.5); Neutrophils % (auto) 62.9 %; Platelet Count 243 K/uL (130-400); RDW Coefficient of Variation 12.6 % (11.5-14.5); RDW Standard Deviation 40.9 fL (36.4-46.3); Red Blood Count 5.08 M/uL (4.2-5.4); White Blood Count 7.75 K/uL (4.8-10.8)
[2019-03-05 20:54] LABS: iSTAT Creatinine 0.6 mg/dl (0.6-1.3); iSTAT Hemoglobin 15.3 g/dl (12.0-16.0); iSTAT Ionized Calcium 1.09 mmol/l (1.12-1.32); iSTAT Potassium 3.7 mEq/L (3.3-5.0)
[2019-03-05 21:05] LABS: Alanine Aminotransferase 36 U/L (12-78); Albumin Level 3.7 gm/dl (3.4-5.0); Aspartate Aminotransferase 21 U/L (15-37); BUN Creatinine Ratio 13.4 (10-20); Blood Urea Nitrogen 8 mg/dl (7-18); Carbon Dioxide 28 mmol/L (21-32); Chloride 108 mmol/L (98-107); Creatinine Clr Calc Pharmacy 78.8 ml/min; Est GFR (African American) 105.2; Est GFR (Non-African American) 90.8; Glucose 77 mg/dl (70-99); Potassium 3.7 mmol/L (3.5-5.1); Sodium 143 mmol/L (136-145)
[2019-03-05 21:10] LABS: Alkaline Phosphatase 97 U/L (45-117); Bilirubin,Total 0.3 mg/dl (0.2-1); Globulin 3.8 gm/dl (2.5-4.0); Total Protein 7.5 gm/dl (6.4-8.2); Troponin I < 0.015 ng/ml (0-0.045)
--- NOTE | 2019-03-05 21:33 | CT Scan Report ---
CT chest wo con CLINICAL HISTORY: 73 years-old Female presenting with Suspect foreign body in Rt lung. TECHNIQUE: Multidetector CT imaging of the chest was performed without the use of intravenous contras t. IV contrast: None. One or more dose lowering techniques were used consistent with the principles o f ALARA (as low as reasonably achievable), including automatic exposure control, mA or kV adjustment to individual patient size, and/or use of iterative reconstruction. COMPARISON: Chest x-ray from 09/14/2017. CT DOSE (mGy.cm): The estimated cumulative dose is 405.04 mGy.cm. FINDINGS: Implementation Coordinator topogram: Unremarkable. Soft tissues: Normal thyroid and thoracic inlet. No axillary, supraclavicular, mediastinal, or hilar lymphadenopathy. Atherosclerosis of the aorta. Normal heart size. Coronary artery calcification. No p ericardial or pleural effusion. Upper abdomen normal. Lungs and airways: No pneumothorax. Filling defect with angulated margins consistent with an aspirate d foreign body in the right lower lobe bronchus (series 4 image 136). Distal bronchi are patent. Pulm onary arteries are not significantly enlarged relative to adjacent bronchi. No interlobular septal th ickening. Bandlike opacities in the right lower lobe in a dependent distribution and to a lesser exte nt in the left lower lobe. Polygonal fissural 6 mm right middle lobe nodule (series 4 image 207). Musculoskeletal: Normal osseous structures. IMPRESSION: 1. Foreign body within the right lower lobe bronchus. Resulting bibasilar atelectasis, right greater than left. 2. 6 mm right middle lobe nodule. Follow-up per Fleischner Society 2017 recommendations below. The report will be called/faxed according to standard departmental protocol. Summary of Fleischner Society 2017 Recommendations (H Yudith et al. Guidelines for management of i ncidental pulmonary nodules detected on CT images: From the Fleischner Society 2017. Radiology 2017; 284: 228-243.) SOLID NODULES Single nodule; size < 6 mm * Low risk patients: No routine follow-up * High risk patients: Optional CT at 12 months Single nodule; size 6-8 mm * Low risk patients: CT at 6-12 months, then consider CT at 18-24 months * High risk patients: CT at 6-12 months, then at 18-24 months Single nodule; size > 8 mm * Either low or high risk patients: Considered CT at 3 months, PET/CT, or tissue sampling Multiple nodules; size < 6 mm * Low risk patients: No routine follow up * High risk patients: Optional CT at 12 months Multiple nodules; size 6-8 mm * Low risk patients: CT at 3-6 months, then consider CT at 18-24 months * High risk patients: CT at 3-6 months, then at 18-24 months Multiple nodules; size > 8 mm * Low risk patients: CT at 3-6 months, then consider at 18-24 months * High risk patients: CT at 3-6 months, then at 18-24 months SUBSOLID NODULES Single ground-glass nodule * Nodule size < 6 mm: No routine follow-up * Nodule size > or = 6 mm: CT at 6-12 months to confirm persistence, then CT every 2 years until 5 y ears Single part-solid nodule * Nodule size < 6 mm: No routine follow-up * Nodules size > or = 6 mm: CT at 3-6 months to confirm persistence. If unchanged and solid componen t remains < 6 mm, annual CT should be performed for 5 years Multiple nodules * Nodule size < 6 mm: CT at 3-6 months. If stable, consider CT at 2 and 4 years. * Nodules size > or = 6 mm: CT at 3-6 months. Subsequent management based on the most suspicious nod ule(s) NOTE: 1) These guidelines apply to incidental nodules. These guidelines do NOT apply to patients younger th an 35 years, immunocompromised patients, or patients with cancer. 2) Risk categories: * Low risk patients: Minimal or absent history of smoking and/or other known risk factors * High risk patients: History of smoking, exposure to other carcinogens, emphysema, fibrosis, upper lobe location, family history of lung cancer, etc. 3) If a nodule up to 8 mm is partly solid or is ground glass, further follow-up is required after 24 months to exclude possible slow growing adenocarcinoma. Electronically signed by: Scotty Parker M.D. 03/05/2019 9:32 PM
[2019-03-05] MEDS ORDERED: LORazepam 1 MG/2 ML VIAL IV STA (22:27)
--- NOTE | 2019-03-05 23:52 | History & Physical Report ---
Date of Service March 05, 2019 Assessment & Plan (1) Admitted to intensive care unit: Admitted to intensive care unit due to inhaled foreign body and right lower lobe bronchus Present on Admission?: Yes (2) Inhaled foreign object: The patient was initially stridorous upon presentation to the emergency department. She was given lorazepam 1 mg IV, Zofran 4 mg IV and DuoNeb x1. Pulmonology/solar technician on-call was consulted, since patient was stable, decision is made to admit the patient to the intensive care unit overnight, for bronchoscopy in the a.m. NPO Lorazepam 0.5 mg IV every 4 hours as needed. Famotidine 20 mg IV every 12 hours. Albuterol nebulizer every 2 hours as needed. NSS + KCl 20 mEq at 100 mils per hour. Zofran 4 mg IV every 6 hours as needed. Acetaminophen 1000 mg IV every 8 hours as needed mild pain or temperature. Present on Admission?: Yes (3) Aspiration into airway: See above Present on Admission?: Yes (4) Hyperlipidemia: Holding simvastatin while n.p.o. Present on Admission?: Yes (5) Hypothyroidism (acquired): Holding levothyroxine while n.p.o. Present on Admission?: Yes (6) Vitamin B12 deficiency: Holding vitamin B12 supplement 1 p.o. Present on Admission?: Yes (7) Anxiety with depression: Lorazepam 0.5 mg IV every 4 hours as needed Present on Admission?: Yes (8) Insomnia: Holding Unisom while n.p.o. Present on Admission?: Yes (9) Vitamin D deficiency: Holding vitamin D supplement while n.p.o. Present on Admission?: Yes History of Present Illness Chief Complaint: The patient reports that she was cutting carrots, decided to eat 1, and became acutely short of breath with paroxysmal coughing. Primary Care Provider: Vic Shannon MD The patient is a 73-year-old female, with a past medical history including hypercholesterolemia, hypothyroidism, vitamin B12 deficiency, depression and vitamin D deficiency, who presented to the ED with above symptoms, underwent a CT of the chest, which showed a inhaled foreign body in her right lower lobe bronchus. Pulmonology was consulted, and advised that the patient be admitted to the ICU for bronchoscopy for the a.m. Allergies Allergy/AdvReac Type Severity Reaction Status Date / Time No Known Allergies Allergy Verified 03/05/19 21:28 Home Medications Home Medications Medication Instructions Recorded Confirmed Type Unisom (doxylamine) 25 mg PO HS PRN 02/13/19 03/05/19 History aspirin 81 mg PO QAM 02/13/19 03/05/19 History cholecalciferol (vitamin D3) 2,000 unit PO QAM 02/13/19 03/05/19 History [Vitamin D3] citalopram [Celexa] 40 mg PO QAM 02/13/19 03/05/19 History cyanocobalamin (vitamin B-12) 1,000 mcg PO Q2D 02/13/19 03/05/19 History levothyroxine 100 mcg PO QAM 02/13/19 03/05/19 History simvastatin 40 mg PO QAM 02/13/19 03/05/19 History Past Med/Surg History Social History Preferred Language: Togolese Communication Ability: Effective Mold Sheet Cleaner Required: No Beliefs That Will Affect Care: None Current Living Situation: Spouse Other Information That Helps Us Care for You: No Feels Safe at Home: Yes Safety Concerns: Feels Safe At This Time Smoking Status: Never smoker Second Hand Exposure: No Hx Alcohol Use: Yes Alcohol type: wine Hx Substance Use: No Review of Systems Review of Systems: The patient denies chest pain, palpitations, lower extremity swelling, fevers, chills, sweats, weight change, fatigue, nausea, vomiting, diarrhea , constipation, abdominal pain, pelvic pain, blood in urine or stool, dysuria, urinary frequency or urgency, headache, memory loss, loss of consciousness, rash, abnormal bruising or bleeding, imbalance, focal or generalized weakness, numbness or tingling in arms or legs, generalized arthralgias or myalgias, back or neck pain, or night sweats. The review of systems is otherwise negative other than for that already noted above, and at least 10 systems have been reviewed. Physical Exam Physical Exam: The patient is awake, alert and oriented 3, well developed and well nourished, normocephalic and atraumatic, lying in bed and in no acute di stress. HEENT--PERRL, EOMI, mucous membranes and oropharynx normal. Neck--supple. No JVD. No bruits. Thyroid normal, trachea midline, no adenopathy. Heart--normal S1 and S2. No murmurs, rubs or gallops. Lungs--diminished breath sounds right lower, no respiratory distress, no accessory muscle use. Abdomen--normal bowel sounds and soft. Nontender. Nondistended, no hernias or masses, no organomegaly. Extremities--no cyanosis or clubbing. No edema. There are good distal pulses b/l. Dermatologic--normal skin turgor, normal color, no abnormal lymph nodes, no rash. Neurologic--cranial nerves II through XII grossly intact. Rheumatologic--normal range of motion. Psychiatric--normal affect. Results & Data Vital Signs (Past 12 Hours) Vital Signs Temp Pulse Pulse Resp BP BP Pulse Ox 03/05/19 22:45 97 H 97 H 16 129/79 94 03/05/19 20:38 70 18 93 03/05/19 20:29 80 20 165/96 H 97 03/05/19 19:42 98.4 F 91 H 18 170/109 H 93 Laboratory Results Laboratory Results WBC 7.75 K/uL (4.8-10.8) 03/05/19 20:33 RBC 5.08 M/uL (4.2-5.4) 03/05/19 20:33 Hgb 16.2 g/dL (12.0-16.0) H 03/05/19 20:33 POC Hgb 15.3 g/dl (12.0-16.0) 03/05/19 20:40 Hct 45.4 % (37-47) 03/05/19 20:33 POC Hct 45 % (37-47) 03/05/19 20:40 MCV 89.4 fL (80-100) 03/05/19 20:33 MCH 31.9 pg (25-34) 03/05/19 20:33 MCHC 35.7 g/dL (32-36) 03/05/19 20:33 RDW Std Deviation 40.9 fL (36.4-46.3) 03/05/19 20:33 RDW Coeff of Eitan 12.6 % (11.5-14.5) 03/05/19 20:33 Plt Count 243 K/uL (130-400) 03/05/19 20:33 MPV 9.5 fL (7.4-10.4) 03/05/19 20:33 Immature Gran % (Auto) 0.3 % 03/05/19 20:33 Neut % (Auto) 62.9 % 03/05/19 20:33 Lymph % (Auto) 26.7 % 03/05/19 20:33 Forest % (Auto) 7.1 % 03/05/19 20:33 Eos % (Auto) 2.6 % 03/05/19 20:33 Baso % (Auto) 0.4 % 03/05/19 20: Immature Gran # (Auto) 0.02 K/uL (0.00-0.02) 03/05/19 20: Neut # (Auto) 4.88 K/uL (1.4-6.5) 03/05/19 20:33 Lymph # (Auto) 2.07 K/uL (1.2-3.4) 03/05/19 20:33 Forest # (Auto) 0.55 K/uL (0.11-0.59) 03/05/19 20: Eos # (Auto) 0.20 K/uL (0-0.5) 03/05/19 20: Baso # (Auto) 0.03 K/uL (0-0.2) 03/05/19 20:33 POC Sodium 144 mEq/L (135-144) 03/05/19 20:40 Sodium 143 mmol/L (136-145) 03/05/19 20:33 POC Potassium 3.7 mEq/L (3.3-5.0) 03/05/19 20:40 Potassium 3.7 mmol/L (3.5-5.1) 03/05/19 20:33 POC Chloride 103 mEq/L (101-112) 03/05/19 20:40 Chloride 108 mmol/L (98-107) H 03/05/19 20:33 Carbon Dioxide 28 mmol/L (21-32) 03/05/19 20:33 POC Total CO2 30 mEq/l (24-31) 03/05/19 20:40 Anion Gap 7.0 (3-11) 03/05/19 20:33 POC Anion Gap 16.0 mmol/L (16-25) 03/05/19 20:40 POC BUN 7 mg/dl (7-18) 03/05/19 20:40 BUN 8 mg/dl (7-18) 03/05/19 20:33 Creatinine 0.58 mg/dl (0.6-1.2) L 03/05/19 20:33 POC Creatinine 0.6 mg/dl (0.6-1.3) 03/05/19 20:40 Est Cr Clr Drug Dosing 78.8 ml/min 03/05/19 20:33 Est GFR ( Amer) 105.2 03/05/19 20:33 Est GFR (Non-Af Amer) 90.8 03/05/19 20:33 BUN/Creatinine Ratio 13.4 (10-20) 03/05/19 20:33 Glucose 77 mg/dl (70-99) 03/05/19 20:33 POC Glucose (other) 82 mg/dl (70-99) 03/05/19 20:40 Calcium 9.0 mg/dl (8.5-10.1) 03/05/19 20:33 POC Ioniz Calcium Mandeep 1.09 mmol/l (1.12-1.32) L 03/05/19 20:40 Total Bilirubin 0.3 mg/dl (0.2-1) 03/05/19 20:33 AST 21 U/L (15-37) 03/05/19 20:33 ALT 36 U/L (12-78) 03/05/19 20:33 Alkaline Phosphatase 97 U/L (45-117) 03/05/19 20:33 Troponin I < 0.015 ng/ml (0-0.045) 03/05/19 20:33 Total Protein 7.5 gm/dl (6.4-8.2) 03/05/19 20:33 Albumin 3.7 gm/dl (3.4-5.0) 03/05/19 20:33 Globulin 3.8 gm/dl (2.5-4.0) 03/05/19 20:33 Albumin/Globulin Ratio 1.0 (0.9-2) 03/05/19 20:33 Lipase 743 U/L (73-393) H 03/05/19 20:33 Nasal Screen MRSA (PCR) Negative (Negative) 03/06/19 Unknown Hepatitis C Ab Screen Neg (Neg) 03/05/19 20:33 Diagnostic Findings [facility] [place], [place] [phone] CT Scan Report Patient: DEREK VINSON Date: 03/05/19 MR#: [id number] [address] Acct ID:[id number]: BAILEE LINARES [address] Date: 1945[facility] Zip: [place] [address] Age: 73Location: ED Sex: F Room/Bed: Att Phy: Diagnosis: ASPIRATED ON PIECE OF CARROT Sara Phy: Vic Shannon MDService Date: 03/05/19 Fam Phy: Vic Shannon MDInterpreting Phy: Scotty Parker MD Admit Phy: Ordering Phy: Sampson Elizalde MD cc: ~ CT chest wo con CLINICAL HISTORY: 73 years-old Female presenting with Suspect foreign body in Rt lung. TECHNIQUE: Multidetector CT imaging of the chest was performed without the use of intravenous contrast. IV contrast: None. One or more dose lowering techniques were used consistent with the principles of ALARA (as low as reasonably achievable), including automatic exposure control, mA or kV adjustment to ind ividual patient size, and/or use of iterative reconstruction. COMPARISON: Chest x-ray from 09/14/2017. CT DOSE (mGy.cm): The estimated cumulative dose is 405.04 mGy.cm. FINDINGS: Freight Team Associate topogram: Unremarkable. Soft tissues: Normal thyroid and thoracic inlet. No axillary, supraclavicular, mediastinal, or hilar lymphadenopathy. Atherosclerosis of the aorta. Normal heart size. Coronary artery calcification. No pericardial or pleural effusion. Upper abdomen normal. Lungs and airways: No pneumothorax. Filling defect with angulated margins consistent with an aspirated foreign body in the right lower lobe bronchus (series 4 image 136). Distal bronchi are patent. Pulmonary arteries are not significantly enlarged relative to adjacent bronchi. No interlobular septal thickening. Bandlike opacities in the right lower lobe in a dependent distribution and to a lesser extent in the left lower lobe. Polygonal fissural 6 mm right middle lobe nodule (series 4 image 207). Musculoskeletal: Normal osseous structures. IMPRESSION: 1. Foreign body within the right lower lobe bronchus. Resulting bibasilar atelectasis, right greater than left. 2. 6 mm right middle lobe nodule. Follow-up per Fleischner Society 2017 recommendations below. The report will be called/faxed according to standard departmental protocol. Summary of Fleischner Society 2017 Recommendations (Yajaira Zurita et al. Guideline s for management of incidental pulmonary nodules detected on CT images: From the Fleischner Society 2017. Radiology 2017; 284: 228-243.) SOLID NODULES Single nodule; size < 6 mm * Low risk patients: No routine follow-up * High risk patients: Optional CT at 12 months Single nodule; size 6-8 mm * Low risk patients: CT at 6-12 months, then consider CT at 18-24 months * High risk patients: CT at 6-12 months, then at 18-24 months Single nodule; size > 8 mm * Either low or high risk patients: Considered CT at 3 months, PET/CT, or tissue sampling Multiple nodules; size < 6 mm * Low risk patients: No routine follow up * High risk patients: Optional CT at 12 months Multiple nodules; size 6-8 mm * Low risk patients: CT at 3-6 months, then consider CT at 18-24 months * High risk patients: CT at 3-6 months, then at 18-24 months Multiple nodules; size > 8 mm * Low risk patients: CT at 3-6 months, then consider at 18-24 months * High risk patients: CT at 3-6 months, then at 18-24 months SUBSOLID NODULES Single ground-glass nodule * Nodule size < 6 mm: No routine follow-up * Nodule size > or = 6 mm: CT at 6-12 months to confirm persistence, then CT every 2 years until 5 years Single part-solid nodule * Nodule size < 6 mm: No routine follow-up * Nodules size > or = 6 mm: CT at 3-6 months to confirm persistence. If unchanged and solid component remains < 6 mm, annual CT should be performed for 5 years Multiple nodules * Nodule size < 6 mm: CT at 3-6 months. If stable, consider CT at 2 and 4 years. * Nodules size > or = 6 mm: CT at 3-6 months. Subsequent management based on the most suspicious nodule(s) NOTE: 1) These guidelines apply to incidental nodules. These guidelines do NOT apply to patients younger than 35 years, immunocompromised patients, or patients with cancer. 2) Risk categories: * Low risk patients: Minimal or absent history of smoking and/or other known risk factors * High risk patients: History of smoking, exposure to other carcinogens, emphysema, fibrosis, upper lobe location, family history of lung cancer, etc. 3) If a nodule up to 8 mm is partly solid or is ground glass, further follow-up is required after 24 months to exclude possible slow growing adenocarcinoma. Electronically signed by: Scotty Parker M.D. 03/05/2019 9:32 PM Dictated: 03/05/192126 Transcribed: 03/05/192126 Code Status & VTE Plan Code Status Full code VTE Prophylaxis Plan VTE Prophylaxis will be ordered: Yes Critical Care Time Critical Care Time: Yes Total Critical Care Time: 40 Prolonged Care Time Total Time: Total critical care time was 40 minutes (1) Inhaled foreign object Encounter type: initial encounter Qualified Code(s): T17.908A - Unspecified foreign body in respiratory tract, part unspecified causing other injury, init ial encounter (2) Aspiration into airway Encounter type: initial encounter Qualified Code(s): T17.908A - Unspecified foreign body in respiratory tract, part unspecified causing other injury, initial encounter
[2019-03-06] MEDS ORDERED: ICU PROTOCOL FOR HYPERGLYCEMIA PRN (00:51)
[2019-03-06] MEDS: NSS + 20MEQ KCL 20 MEQ/1,000 ML BAG IV SCH ×2 (01:03→10:56)
[2019-03-06] MEDS ORDERED: LORazepam 0.5 MG/1 ML VIAL IV PRN (06:33)
[2019-03-06] MEDS ORDERED: ALBUTEROL 0.083% NEBU SOLN 3 ML VIAL NEB PRN (06:36)
[2019-03-06] MEDS ORDERED: ACETAMINOPHEN 1000 MG/100 ML IV IV PRN (06:39)
[2019-03-06] MEDS ORDERED: ONDANSETRON INJ 2 MG/ML 2 ML VIAL IV PRN (06:39)
[2019-03-06] MEDS ORDERED: FAMOTIDINE 20 MG in SYRINGE 3 ML IV SCH (07:00)
--- NOTE | 2019-03-06 07:52 | Hospitalist Progress Note ---
Date of Service March 06, 2019 Assessment & Plan (1) Admitted to intensive care unit: Admitted to intensive care unit due to inhaled foreign body and right lower lobe bronchus (2) Inhaled foreign object: The patient was initially stridorous upon presentation to the emergency department. She was given lorazepam 1 mg IV, Zofran 4 mg IV and DuoNeb x1. Pulmonology/rotary driller on-call was consulted, since patient was stable, decision is made to admit the patient to the intensive care unit overnight, for bronchoscopy in the a.m. NPO Lorazepam 0.5 mg IV every 4 hours as needed. Famotidine 20 mg IV every 12 hours. Albuterol nebulizer every 2 hours as needed. NSS + KCl 20 mEq at 100 mils per hour. Zofran 4 mg IV every 6 hours as needed. Acetaminophen 1000 mg IV every 8 hours as needed mild pain or temperature. (3) Aspiration into airway: See above (4) Hyperlipidemia: Holding simvastatin while n.p.o. (5) Hypothyroidism (acquired): Holding levothyroxine while n.p.o. (6) Vitamin B12 deficiency: Holding vitamin B12 supplement 1 p.o. (7) Anxiety with depression: Lorazepam 0.5 mg IV every 4 hours as needed (8) Insomnia: Holding Unisom while n.p.o. (9) Vitamin D deficiency: Holding vitamin D supplement while n.p.o. Subjective Patient is in the ICU preparing for bronchoscopy for foreign body removal Review of Systems Review of Systems: ROS: well nourished well developed. No double vision blurry vision Patient to the problems with swallowing with aspiration No palpitations, chest pain or pressure Baseline some shortness of breath No abdominal pain nausea vomiting diarrhea changes in appetite or weight No burning urine urine frequency or changes in color No focal joint pain or muscle pain No skin rashes or oral lesions No unusual bruising or bleeding No focused back pain or numbness or loss of strength No changes in memory or confusion Physical Exam Physical Exam: The patient appeared well nourished and normally developed. Vital signs as documented. Head exam is unremarkable. normocephalic, atraumatic Neck is without jugular venous distension, thyromegaly, or lymphademopathy Lungs are diminished breath sounds on the right Cardiac exam reveals Rhythm is regular. First and second heart sounds normal. Abdominal exam reveals normal bowel sounds, no masses, no organomegaly Extremities are nonedematous and both pedal pulses are present Neurologic exam is A&Ox3, no focal deficits, strength is equal bilateral Psychologically seems anxious Skin is warm Dry without bruises or lesions Results & Data Vital Signs (Past 12 Hours) Vital Signs Temp Pulse Pulse Pulse Resp BP BP 03/06/19 06:01 81 16 129/84 03/06/19 05:01 84 19 142/89 H 03/06/19 04:01 36.5 C 87 17 126/70 03/06/19 03:01 93 H 23 144/84 H 03/06/19 02:01 97 H 15 142/76 H 03/06/19 01:01 95 H 25 H 130/77 03/06/19 00:35 36.5 C 100 H 97 H 20 145/88 H 145/88 H 03/06/19 00:00 101 H 18 03/05/19 22:45 97 H 97 H 16 03/05/19 20:38 70 18 03/05/19 20:29 80 20 BP Pulse Ox 03/06/19 06:01 96 03/06/19 05:01 95 03/06/19 04:01 95 03/06/19 03:01 96 03/06/19 02:01 97 03/06/19 01:01 94 03/06/19 00:35 92 03/06/19 00:00 109/73 96 03/05/19 22:45 129/79 94 03/05/19 20:38 93 03/05/19 20:29 165/96 H 97 (1) Aspiration into airway Encounter type: initial encounter Qualified Code(s): T17.908A - Unspecified foreign body in respiratory tract, part unspecified causing other injury, initial encounter (2) Inhaled foreign object Encounter type: initial encounter Qualified Code(s): T17.908A - Unspecified foreign body in respiratory tract, part unspecified causing other injury, initial encounter
[2019-03-06] MEDS ORDERED: MIDAZOLAM HCL 5 MG/ML 1 ML VIAL ONE (09:39)
[2019-03-06] MEDS ORDERED: fentaNYL citrate 100 MCG/2 ML VIAL ONE (09:40)
[2019-03-06] MEDS ORDERED: AMOXICILLIN/CLAVULANATE 875 MG TAB PO SCH ×2 (12:00→12:15)
[2019-03-06 13:03] VITALS: O2SAT 93
--- NOTE | 2019-03-06 15:35 | Critical Care Consultation ---
Date of Consultation March 06, 2019 Assessment & Plan (1) Aspiration into airway: Impression: 1. Foreign body occluding the right main bronchus extending to the bronchus intermedius, removed with bronchoscopy and a snare. 2. Rotation and mucosal changes noted at the site where the foreign body was embedded. Plan: 1. Bronchoscopy was done and foreign body was removed, appeared to be a piece of carrot. Sent for pathology per routine. 2. Start Augmentin 875 mg p.o. twice daily for 7 days due to the significant irritation of the mucosa of the needed. 3. No need for speech pathology testing at this point it is a single event. 4. Continue current medications. 5. Patient can be discharged home. 6. Start oral intake. Thank you, case discussed with the staff on rounds in details, CCM time was 35 minutes. Excluding procedure time. History of Present Illness Reason for Consultation: Aspirated foreign body. Requesting Physician: Dr. Joy Attending Physician: Jose Joy MD History of Present Illness Dear Dr. Joy: Thank you for the kind referral Mrs. Oneal to critical care service. This is a 73-year-old female with history of exotic, hypothyroidism, hyperlipidemia, presented to the hospital after she aspirated a piece of carrot while she was eating it, the patient in the ED was noted to have wheezing mainly localized on the right side, the patient did have vigorous cough without producing any foreign body or any secretions. No fever were reported. The patient did not have similar episodes in the past. No nausea or vomiting, no dysphagia, and there is no dysphonia either. The patient was kept n.p.o. for bronchoscopy with foreign body removal in the morning. Allergies Allergy/AdvReac Type Severity Reaction Status Date / Time No Known Allergies Allergy Verified 03/05/19 21:28 Home Medications Home Medications Medication Instructions Recorded Confirmed Type Unisom (doxylamine) 25 mg PO HS PRN 02/13/19 03/05/19 History aspirin 81 mg PO QAM 02/13/19 03/05/19 History cholecalciferol (vitamin D3) 2,000 unit PO QAM 02/13/19 03/05/19 History [Vitamin D3] citalopram [Celexa] 40 mg PO QAM 02/13/19 03/05/19 History cyanocobalamin (vitamin B-12) 1,000 mcg PO Q2D 02/13/19 03/05/19 History levothyroxine 100 mcg PO QAM 02/13/19 03/05/19 History simvastatin 40 mg PO QAM 02/13/19 03/05/19 History Patient History Medical History Anxiety Cancer SKIN CANCER Heart palpitations CAFFIENE RELATED Hyperlipidemia Hypertension BORDERLINE ELEVATION Hypothyroidism Kidney stones Osteoarthritis Temporomandibular joint disorder HX OF Urinary leakage Surgical History H/O foot surgery RT FOOT TOE SURGERY History of bilateral tubal ligation History of bladder surgery BLADDER TACK History of colonoscopy History of cystoscopy History of esophagogastroduodenoscopy (EGD) History of tooth extraction Family History Brother Family history of diabetes mellitus Social History Preferred Language: [place] Communication Ability: Effective Airborne Weapons Technical Manager Required: No Beliefs That Will Affect Care: None Current Living Situation: Spouse Other Information That Helps Us Care for You: No Feels Safe at Home: Yes Safety Concerns: Feels Safe At This Time Smoking Status: Never smoker Second Hand Exposure: No Hx Alcohol Use: Yes Alcohol type: wine Hx Substance Use: No Review of Systems Review of Systems: Review of system including 14 systems was unremarkable except for the above. Physical Exam Physical Exam: Vital signs are stable, S1-S2 regular rate and rhythm, lungs a re clear except for mild wheezing mainly on the right base, abdomen is benign, no edema, no oral lesions, no rash and no neurologic deficit. Results & Data Vital Signs (Past 12 Hours) Vital Signs Temp Pulse Resp BP BP Pulse Ox 03/06/19 13:01 81 28 H 119/79 93 03/06/19 13:00 82 20 93 03/06/19 12:45 78 18 92 03/06/19 12:30 89 20 91 03/06/19 12:28 72 16 142/69 H 93 03/06/19 12:26 71 13 03/06/19 11:45 36.7 C 82 17 98 03/06/19 11:30 82 19 98 03/06/19 11:15 74 12 97 03/06/19 11:01 75 12 132/81 96 03/06/19 11:00 74 13 96 03/06/19 10:45 80 17 96 03/06/19 10:30 82 16 96 03/06/19 10:20 87 17 96 03/06/19 10:19 93 H 18 97 03/06/19 10:18 85 17 96 03/06/19 10:17 85 23 97 03/06/19 10:16 90 13 150/88 H 97 03/06/19 10:14 87 17 96 03/06/19 10:13 87 13 96 03/06/19 10:11 94 H 19 155/77 H 98 03/06/19 10:09 94 H 15 98 03/06/19 10:08 99 H 13 97 03/06/19 10:07 92 H 13 97 03/06/19 10:05 90 16 146/87 H 97 03/06/19 10:04 87 18 97 03/06/19 10:02 83 17 137/80 94 03/06/19 10:01 81 14 126/72 96 03/06/19 09:59 85 16 132/81 133/81 96 03/06/19 09:58 83 11 L 95 03/06/19 09:57 82 11 L 131/81 96 03/06/19 09:55 88 20 161/82 H 90 03/06/19 09:54 96 H 28 H 87 L 03/06/19 09:52 96 H 34 H 164/89 H 95 03/06/19 09:51 84 14 147/92 H 96 03/06/19 09:38 81 147/92 H 95 03/06/19 08:09 150/91 H 90 03/06/19 08:00 36.7 C 80 95 03/06/19 07:01 75 19 129/94 95 03/06/19 07:00 76 27 H 95 03/06/19 06:01 81 16 129/84 96 03/06/19 05:01 84 19 142/89 H 95 03/06/19 04:01 36.5 C 87 17 126/70 95 03/06/19 03:01 93 H 23 144/84 H 96 03/06/19 02:01 97 H 15 142/76 H 97 Laboratory Results Labs were reviewed CBC and BMP were acceptable. Diagnostic Findings CAT scan of the chest was reviewed personally which showed foreign body in the bronchus intermedius. I did not appreciate any nodularity. (1) Aspiration into airway Encounter type: initial encounter Qualified Code(s): T17.908A - Unspecified foreign body in respiratory tract, part unspecified causing other injury, initial encounter
--- NOTE | 2019-03-06 15:36 | Procedure Note ---
Procedure Note Date of Service March 06, 2019 Note Bronchoscopy was done at the bedside, indication is aspirated foreign body. The patient was consented for the procedure, agreed to the risk and benefit of the procedure. The procedure was done in room #9 in the ICU, monitored throughout the entire procedure with ICU style, the patient received lidocaine neb of 5 mL of 4%. Received multiple aliquots of lidocaine throughout the procedure up to 10 mL of 1%. The patient received total of 75 mics of fentanyl and 25 mics increment and 3 mg of Versed and 1 mg increments of 5 minutes apart. Using a bite block, the bronchoscope passed through the oral cavity, and the findings as follows: 1. Supraglottic area appears normal. Vocal cords are mobile. 2. The trachea appeared with mild subglottic stenosis. 3. Foreign body noted at the takeoff of the bronchus intermedius. Appeared to be a piece of cataract. 4. Using 1.9 Wolof snare through the working channel of the bronchoscope, the snare captured the foreign body and was removed entirely. The bronchoscope retrieved at the same time with a foreign body being retrieved. And sent for pathology. 5. Second insertion was done through the vocal cord through the bite-block, and the area inspected, no fragments of foreign body was noted. 6. The mucosa was very irritated at the site. Treatment with antibiotic would be indicated. 7. The bronchoscope was removed entirely and the procedure was completed. No immediate complication, the patient tolerated the procedure very well. Once the patient is awake and alert and able to tolerate sips of water, she can start on oral intake. The findings shared with the patient of the patient was awake. Coding
--- NOTE | 2019-03-06 15:36 | Post Anesthesia Assessment ---
Date of Service March 06, 2019 Post Sedation Assessment Vital Signs Temp Pulse Pulse Pulse Resp BP BP 03/06/19 13:02 80 26 H 03/06/19 13:01 81 28 H 119/79 03/06/19 13:00 82 20 03/06/19 12:45 78 18 03/06/19 12:30 89 20 03/06/19 12:28 72 16 142/69 H 03/06/19 12:26 71 13 03/06/19 11:45 36.7 C 82 17 03/06/19 11:30 82 19 03/06/19 11:15 74 12 03/06/19 11:01 75 12 132/81 03/06/19 11:00 74 13 03/06/19 10:45 80 17 03/06/19 10:30 82 16 03/06/19 10:20 87 17 03/06/19 10:19 93 H 18 03/06/19 10:18 85 17 03/06/19 10:17 85 23 03/06/19 10:16 90 13 150/88 H 03/06/19 10:14 87 17 03/06/19 10:13 87 13 03/06/19 10:11 94 H 19 155/77 H 03/06/19 10:09 94 H 15 03/06/19 10:08 99 H 13 03/06/19 10:07 92 H 13 03/06/19 10:05 90 16 146/87 H 03/06/19 10:04 87 18 03/06/19 10:02 83 17 137/80 03/06/19 10:01 81 14 126/72 03/06/19 09:59 85 16 132/81 133/81 03/06/19 09:58 83 11 L 03/06/19 09:57 82 11 L 131/81 03/06/19 09:55 88 20 161/82 H 03/06/19 09:54 96 H 28 H 03/06/19 09:52 96 H 34 H 164/89 H 03/06/19 09:51 84 14 147/92 H 03/06/19 09:38 81 147/92 H 03/06/19 08:09 150/91 H 03/06/19 08:00 36.7 C 80 03/06/19 07:01 75 19 129/94 03/06/19 07:00 76 27 H 03/06/19 06:01 81 16 129/84 03/06/19 05:01 84 19 142/89 H 03/06/19 04:01 36.5 C 87 17 126/70 03/06/19 03:01 93 H 23 144/84 H 03/06/19 02:01 97 H 15 142/76 H 03/06/19 01:01 95 H 25 H 130/77 03/06/19 00:35 36.5 C 100 H 97 H 20 145/88 H 145/88 H 03/06/19 00:00 101 H 18 03/05/19 22:45 97 H 97 H 16 03/05/19 20:38 70 18 03/05/19 20:29 80 20 03/05/19 19:42 36.9 C 91 H 18 170/109 H BP Pulse Ox 03/06/19 13:02 91 03/06/19 13:01 93 03/06/19 13:00 93 03/06/19 12:45 92 03/06/19 12:30 91 03/06/19 12:28 93 03/06/19 12:26 03/06/19 11:45 98 03/06/19 11:30 98 03/06/19 11:15 97 03/06/19 11:01 96 03/06/19 11:00 96 03/06/19 10:45 96 03/06/19 10:30 96 03/06/19 10:20 96 03/06/19 10:19 97 03/06/19 10:18 96 03/06/19 10:17 97 03/06/19 10:16 97 03/06/19 10:14 96 03/06/19 10:13 96 03/06/19 10:11 98 03/06/19 10:09 98 03/06/19 10:08 97 03/06/19 10:07 97 03/06/19 10:05 97 03/06/19 10:04 97 03/06/19 10:02 94 03/06/19 10:01 96 03/06/19 09:59 96 03/06/19 09:58 95 03/06/19 09:57 96 03/06/19 09:55 90 03/06/19 09:54 87 L 03/06/19 09:52 95 03/06/19 09:51 96 03/06/19 09:38 95 03/06/19 08:09 90 03/06/19 08:00 95 03/06/19 07:01 95 03/06/19 07:00 95 03/06/19 06:01 96 03/06/19 05:01 95 03/06/19 04:01 95 03/06/19 03:01 96 03/06/19 02:01 97 03/06/19 01:01 94 03/06/19 00:35 92 03/06/19 00:00 109/73 96 03/05/19 22:45 129/79 94 03/05/19 20:38 93 03/05/19 20:29 165/96 H 97 03/05/19 19:42 93 Recovery Score Activity: Moves 4 extremities Respiration: Deep Breath/Cough Circulation: +/-20% PreAnes Value Consciousness: Arouseable (by name) Oxygen Saturation: O2 needed for >90% Post Anesthesia Score: 8 Post Sedation Plan On clinical assessment, the patient appears to have tolerated the sedation without complications. Patient is recovering as anticipated. Patient will continue to be monitored by nursing and may be discharged when sedation discharge criteria are met per below protocol. Upon Completions of procedure and additional 15 minutes continue every 5 minute vital signs and the P.A.R. score; then discharge to a Phase I or Fast Track to Phase II per the following guidelines: * Discharge Patient to appropriate Phase II area if PAR is 8 or greater or return to pre- procedure baseline. The post - procedure orders will be as directed. * If PAR score is less than 8 or not return to pre-procedure baseline then patient will follow Phase I monitoring till PAR is reached for Phase II. The Phase I may be done in procedure room or may call to secure a Phase I area. * If naloxone or flumazenil are used for reversal, hold in Phase I for continued monitoring from when last reversal dose was given for a minimum of 60 minutes or longer pending the nurse and/or physician discretion of patient condition before discharge to Phase II. Please call the Sedation Physician to re-evaluate and complete post-note for discharge to Phase II area. Do NOT discharge from procedure sedation or Phase 1 until post- sedation evalua tion note is complete by procedure /sedation MD Sedation Discharge Instructions to be given to the patient at discharge to home.
[2019-03-06 15:55] VITALS: TEMP 98.2
[2019-03-06 17:34] VITALS: BP 109/73; PULSE 80
--- NOTE | 2019-03-06 17:45 | Discharge Summary ---
Date of Service March 06, 2019 Admission HPI Per Admitting Provider The patient is a 73-year-old female, with a past medical history including hypercholesterolemia, hypothyroidism, vitamin B12 deficiency, depression and vitamin D deficiency, who presented to the ED with above symptoms, underwent a CT of the chest, which showed a inhaled foreign body in her right lower lobe bronchus. Pulmonology was consulted, and advised that the patient be admitted to the ICU for bronchoscopy for the a.m. Principal Diagnosis aspiration of foreign antibody causing pneumonitis and respiratory distress Discharge Exam The patient appeared well nourished and normally developed. Vital signs as documented. Head exam is unremarkable. normocephalic, atraumatic Neck is without jugular venous distension, thyromegaly, or lymphademopathy Lungs are clear to auscultation and percussion. Cardiac exam reveals Rhythm is regular. First and second heart sounds normal. Abdominal exam reveals normal bowel sounds, no masses, no organomegaly Discharge Data Allergies Allergy/AdvReac Type Severity Reaction Status Date / Time No Known Allergies Allergy Verified 03/05/19 21:28 Consultations 03/05/19 21:43 Consult Bottle And Glass Inspector Stat ED Decision to Admit Stat 03/06/19 00:51 Consult Case Management - Discharge Planning Routine Ordered Studies 03/05/19 20:20 CT chest wo con Stat Hospital Course (1) Admitted to intensive care unit: Admitted to intensive care unit due to inhaled foreign body and right lower lobe bronchus. Patient had bronchoscopic removal. There is much irritation seen in the bronchoscope, pulmonary critical care recommends an additional week of Augmentin, there is incidental noted lung nodule seen on intake CT scan she will be enrolled in the lung nodule program and outpatient repeat CT scan will be at their discretion (2) Inhaled foreign object: Removed and resolved (3) Aspiration into airway: See above (4) Hyperlipidemia: Resume simvastatin (5) Hypothyroidism (acquired): Resume Synthroid (6) Vitamin B12 deficiency: Resume B12 (7) Anxiety with depression: Resume outpatient treatment of anxiety (8) Insomnia: Holding Unisom while n.p.o. (9) Vitamin D deficiency: Total Time Total Time Spent Total Time Spent (In Minutes): greater than 30 minutes were required to prepare discharge Discharge Plan Discharge Items Patient Disposition: Home - Self-Care Reason For Visit: RLL BRONCHUS FOREIGN BODY Discharge Diagnosis: lung irritation from aspirated foreign body Discharge Goals: Decrease discomfort and Diagnostic testing Activity: Resume your previous activity Non-emergency contact: Primary Care Provider Call non-emergency contact if: you have any medication questions Follow-up/Referrals: Gonzalo Shannon MD [Primary Care Provider] - Diet: Regular Addtl Provider Instructions: you may experience some coughing and mucus production, if this increases rather than lessens over time please see a healthcare provider if you have a fever over 99F while on antibiotics, please see a health care provider Prescriptions: New amoxicillin-pot clavulanate 875-125 mg Tablet 1 tab PO BID Qty: 11 RF: 0 Continued citalopram [Celexa] 40 mg Tablet 40 mg PO QAM RF: 0 cyanocobalamin (vitamin B-12) 1,000 mcg Tablet 1,000 mcg PO Q2D RF: 0 aspirin 81 mg Tablet,Delayed Release (Dr/Ec) 81 mg PO QAM RF: 0 simvastatin 40 mg Tablet 40 mg PO QAM RF: 0 levothyroxine 100 mcg Tablet 100 mcg PO QAM RF: 0 cholecalciferol (vitamin D3) [Vitamin D3] 2,000 unit Tablet 2,000 unit PO QAM RF: 0 Unisom (doxylamine) 25 mg Tablet 25 mg PO HS PRN (Reason: Sleep) RF: 0 Stand-Alone Forms: [facility] Discharge Orders: Discharge Order (Routine); Ordered 03/06/19 Ordered By: Jose Joy Admission Data Admit Date/Time: 03/05/19 23:52 Attending Provider: Jose Joy Admit Provider: Renzo Parr Primary Care Provider: Gonzalo Shannon Other Providers: Ovidio Castillo Rick D Service: Intensive Care Unit Other Interventions: Discharge Summary Assessment (RN) Last Done: 03/06/19 17:31
[2019-03-06] MEDS ORDERED: FAMOTIDINE 20 MG TAB PO SCH (21:00)
--- NOTE | 2019-03-07 20:02 | Emergency Department Note ---
Entered by Ana Starkey acting as a scribe for Sampson Elizalde MD History of Present Illness General Chief complaint: Cough Stated complaint: ASPIRATED ON PIECE OF CARROT Source: patient History of Present Illness Onset (ago): hour(s) 5 Location: chest (cough) Pain Consistency: + other (worsening) Maximum Pain Intensity: 6 Exacerbated By: + other (chest pain worsened with inspirations) Associated symptoms: + chest pain (right-sided), + shortness of breath and + other (wheezing) The patient is a 73 year old F who presents to the Emergency Room with complaints of a worsening cough that started 5 hours ago. She states that she was recently seen in the ED for neck swelling and coughing and discharged on Augmentin. She adds that her cough initially cleared up after her initial ED visit. She notes that today she was eating carrots when she choked on them. She adds that she spit out the carrots. She notes that she is currently experiencing wheezing, shortness of breath, and right-sided chest pain after her episode of choking. She adds that her pain is worsened with inspirations. She states that since her episode of choking she has been drinking beer and eating solid food normally. She Home Medications Home Medications Medication Instructions Recorded Confirmed Type Unisom (doxylamine) 25 mg PO HS PRN 02/13/19 03/05/19 History aspirin 81 mg PO QAM 02/13/19 03/05/19 History cholecalciferol (vitamin D3) 2,000 unit PO QAM 02/13/19 03/05/19 History [Vitamin D3] citalopram [Celexa] 40 mg PO QAM 02/13/19 03/05/19 History cyanocobalamin (vitamin B-12) 1,000 mcg PO Q2D 02/13/19 03/05/19 History levothyroxine 100 mcg PO QAM 02/13/19 03/05/19 History simvastatin 40 mg PO QAM 02/13/19 03/05/19 History amoxicillin-pot clavulanate 1 tab PO BID #11 tab 03/06/19 Rx Allergies Allergy/AdvReac Type Severity Reaction Status Date / Time No Known Allergies Allergy Verified 03/05/19 21:28 Past Med/Surg History Medical History Anxiety Cancer SKIN CANCER Heart palpitations CAFFIENE RELATED Hyperlipidemia Hypertension BORDERLINE ELEVATION Hypothyroidism Kidney stones Osteoarthritis Temporomandibular joint disorder HX OF Urinary leakage Surgical History H/O foot surgery RT FOOT TOE SURGERY History of bilateral tubal ligation History of bladder surgery BLADDER TACK History of colonoscopy History of cystoscopy History of esophagogastroduodenoscopy (EGD) History of tooth extraction Family History Brother Family history of diabetes mellitus Social History Preferred Language: Sinhala Communication Ability: Effective Science Consultant Required: No Beliefs That Will Affect Care: None Current Living Situation: Spouse Other Information That Helps Us Care for You: No Feels Safe at Home: Yes Safety Concerns: Feels Safe At This Time Smoking Status: Never smoker Second Hand Exposure: No Hx Alcohol Use: Yes Alcohol type: wine Hx Substance Use: No Review of Systems See HPI for pertinent positives & negatives. and A total of 10 systems reviewed and were otherwise negative Physical Exam Vital Signs Vital Signs - 24 hr 03/05/19 19:42 03/05/19 20:29 03/05/19 20:38 Temperature 98.4 F Temperature Source Oral Sepsis Recent Fever Within 48 Hours No Sepsis Action Taken by Nursing No Action Required Pulse Rate 91 H Pulse Rate [Right Finger] 80 70 Pulse Rhythm [Right Finger] Regular Pulse Strength [Right Finger] Normal Respiratory Rate 18 20 18 Respiratory Effort / Characteristics Non-Labored Spontaneous Non-Labored Spontaneous Non-Labored Spontaneous Respiratory Depth Normal Normal Respiratory Pattern Regular Blood Pressure 170/109 H Blood Pressure [Right Arm] 165/96 H Blood Pressure Mean 129 Blood Pressure Mean [Right Arm] 119 Blood Pressure Position Sitting Blood Pressure Position [Right Arm] Sitting Pulse Oximetry 93 97 93 Oxygen Delivery Method Room Air Room Air Room Air GENERAL: Awake, alert, well-appearing, in no acute distress HENT: Normocephalic, atraumatic. Oropharynx unremarkable. EYES: Normal conjunctiva. Sclera non-icteric. NECK: Supple. No nuchal rigidity. FROM. No JVD. RESPIRATORY: Wheezes on the right. CARDIAC: Regular rate, normal rhythm. Extremities warm and well perfused. Pulses equal. ABDOMEN: Soft, non-distended. No tenderness to palpation. No rebound or guardin g. No masses. RECTAL: Deferred. MUSCULOSKELETAL: Chest examination reveals chest pain which is reproducible with inspirations. The back is symmetrical on inspection without obvious abnormality. There is no CVA tenderness to palpation. No joint edema. LOWER EXTREMITIES: Calves are equal size bilaterally and non-tender. No edema. No discoloration. NEURO: Normal sensorium. No sensory or motor deficits noted. SKIN: No rash or jaundice noted. Course 2014: The patient was evaluated in room B6. A complete history and physical exam was performed. 2019: I reviewed the patient's case with Dr. Castillo, Wardrobe Attendant. Dr. Castillo states that the patient will need to be admitted to the ED. 2150: I reviewed the patient's case with Dr. Renzo Parr, [facility] Hospitalist. He will evaluate the patient for further management. Consultations Consultation #1: I reviewed the patient's case with Dr. Castillo, Wardrobe Attendant. Dr. Castillo states that the patient will need to be admitted to the ED. Time: 20:20 Consultation #2: I reviewed the patient's case with Dr. Renzo Parr, [facility] Hospitalist. He will evaluate the patient for further management. Time: 21:51 Administered Medications Discontinued Medications Albuterol (Duoneb) 12 ml NEB ONE ONE Stop: 03/05/19 20:21 Last Admin: 03/05/19 20:37 Dose: 12 ml Documented by: [id number] Amoxicillin/Clavulanate Potassium (Augmentin 875mg) 1 tab PO BID NICOLE Stop: 03/13/19 11:59 Last Admin: 03/06/19 13:55 Dose: 1 tab Documented by: [id number] Fentanyl Citrate (Fentanyl Citrate) Confirm Administered Dose 100 mcg .ROUTE .STK-MED ONE Stop: 03/06/19 09:41 Last Increment: 03/06/19 10:57 Dose: 75 mcg Documented by: [id number] Lorazepam (Ativan) 1 mg in 2 mls @ 2 mls/min IV NOW STA Stop: 03/05/19 22:28 Last Admin: 03/05/19 22:40 Dose: 2 mls/min Documented by: [id number] Potassium Chloride/Sodium Chloride (Normal Saline W/20 Meq Kcl) 20 meq in 1,000 mls @ 100 mls/hr IV .Q10H NICOLE Stop: 04/05/19 00:50 Last Admin: 03/06/19 10:56 Dose: 100 mls/hr Documented by: [id number] Infusion: 03/06/19 10:56 Dose: 100 mls/hr Documented by: [id number] Admin: 03/06/19 01:03 Dose: 100 mls/hr Documented by: [id number] Famotidine 20 mg/ Syringe 5 mls @ 2.5 mls/min IV Q12H NICOLE Stop: 04/05/19 06:59 Last Admin: 03/06/19 10:55 Dose: 2.5 mls/min Documented by: [id number] Midazolam HCl (Versed) Confirm Administered Dose 5 mg .ROUTE .STK-MED ONE Stop: 03/06/19 09:40 Last Increment: 03/06/19 10:57 Dose: 3 mg Documented by: [id number] Ondansetron HCl (Zofran) 4 mg IV NOW STA Stop: 03/05/19 20:21 Last Admin: 03/05/19 20:45 Dose: Not Given Documented by: [id number] Medical Decision Making Differential Diagnosis Differential diagnosis includes: infections, reactive airway disease, pneumonia, pneumothorax, COPD, CHF, cardiac ischemia, pulmonary embolism, musculoskeletal, gastrointestinal, as well as others were entertained. Medical Records Attestation: I reviewed the patient's medical records. Home Medications Current Medication List: was personally reviewed by me Laboratory Data Attestation: I reviewed the patient's lab results. Result diagrams: 03/05/19 20:33 03/05/19 20:33 Lab Results 03/05/19 03/05/19 03/05/19 Range/Units 20:33 20:33 20:33 WBC 7.75 (4.8-10.8) K/uL RBC 5.08 (4.2-5.4) M/uL Hgb 16.2 H (12.0-16.0) g/dL POC Hgb (12.0-16.0) g/dl Hct 45.4 (37-47) % POC Hct (37-47) % MCV 89.4 (80-100) fL MCH 31.9 (25-34) pg MCHC 35.7 (32-36) g/dL RDW Std Deviation 40.9 (36.4-46.3) fL RDW Coeff of Eitan 12.6 (11.5-14.5) % Plt Count 243 (130-400) K/uL MPV 9.5 (7.4-10.4) fL Immature Gran % (Auto) 0.3 % Neut % (Auto) 62.9 % Lymph % (Auto) 26.7 % [place] % (Auto) 7.1 % Eos % (Auto) 2.6 % Baso % (Auto) 0.4 % Immature Gran # (Auto) 0.02 (0.00-0.02) K/uL Neut # (Auto) 4.88 (1.4-6.5) K/uL Lymph # (Auto) 2.07 (1.2-3.4) K/uL [place] # (Auto) 0.55 (0.11-0.59) K/uL Eos # (Auto) 0.20 (0-0.5) K/uL Baso # (Auto) 0.03 (0-0.2) K/uL POC Sodium (135-144) mEq/L Sodium 143 (136-145) mmol/L POC Potassium (3.3-5.0) mEq/L Potassium 3.7 (3.5-5.1) mmol/L POC Chloride (101-112) mEq/L Chloride 108 H (98-107) mmol/L Carbon Dioxide 28 (21-32) mmol/L POC Total CO2 (24-31) mEq/l Anion Gap 7.0 (3-11) POC Anion Gap (16-25) mmol/L POC BUN (7-18) mg/dl BUN 8 (7-18) mg/dl Creatinine 0.58 L (0.6-1.2) mg/dl POC Creatinine (0.6-1.3) mg/dl Est Cr Clr Drug Dosing 78.8 ml/min Est GFR ( Amer) 105.2 Est GFR (Non-Af Amer) 90.8 BUN/Creatinine Ratio 13.4 (10-20) Glucose 77 (70-99) mg/dl POC Glucose (other) (70-99) mg/dl Calcium 9.0 (8.5-10.1) mg/dl POC Ioniz Calcium Mandeep (1.12-1.32) mmol/l Total Bilirubin 0.3 (0.2-1) mg/dl AST 21 (15-37) U/L ALT 36 (12-78) U/L Alkaline Phosphatase 97 (45-117) U/L Troponin I < 0.015 (0-0.045) ng/ml Total Protein 7.5 (6.4-8.2) gm/dl Albumin 3.7 (3.4-5.0) gm/dl Globulin 3.8 (2.5-4.0) gm/dl Albumin/Globulin Ratio 1.0 (0.9-2) Lipase 743 H (73-393) U/L Hepatitis C Ab Screen Neg (Neg) 03/05/19 Range/Units 20:40 WBC (4.8-10.8) K/uL RBC (4.2-5.4) M/uL Hgb (12.0-16.0) g/dL POC Hgb 15.3 (12.0-16.0) g/dl Hct (37-47) % POC Hct 45 (37-47) % MCV (80-100) fL MCH (25-34) pg MCHC (32-36) g/dL RDW Std Deviation (36.4-46.3) fL RDW Coeff of Eitan (11.5-14.5) % Plt Count (130-400) K/uL MPV (7.4-10.4) fL Immature Gran % (Auto) % Neut % (Auto) % Lymph % (Auto) % [place] % (Auto) % Eos % (Auto) % Baso % (Auto) % Immature Gran # (Auto) (0.00-0.02) K/uL Neut # (Auto) (1.4-6.5) K/uL Lymph # (Auto) (1.2-3.4) K/uL [place] # (Auto) (0.11-0.59) K/uL Eos # (Auto) (0-0.5) K/uL Baso # (Auto) (0-0.2) K/uL POC Sodium 144 (135-144) mEq/L Sodium (136-145) mmol/L POC Potassium 3.7 (3.3-5.0) mEq/L Potassium (3.5-5.1) mmol/L POC Chloride 103 (101-112) mEq/L Chloride (98-107) mmol/L Carbon Dioxide (21-32) mmol/L POC Total CO2 30 (24-31) mEq/l Anion Gap (3-11) POC Anion Gap 16.0 (16-25) mmol/L POC BUN 7 (7-18) mg/dl BUN (7-18) mg/dl Creatinine (0.6-1.2) mg/dl POC Creatinine 0.6 (0.6-1.3) mg/dl Est Cr Clr Drug Dosing ml/min Est GFR ( Amer) Est GFR (Non-Af Amer) BUN/Creatinine Ratio (10-20) Glucose (70-99) mg/dl POC Glucose (other) 82 (70-99) mg/dl Calcium (8.5-10.1) mg/dl POC Ioniz Calcium Mandeep 1.09 L (1.12-1.32) mmol/l Total Bilirubin (0.2-1) mg/dl AST (15-37) U/L ALT (12-78) U/L Alkaline Phosphatase (45-117) U/L Troponin I (0-0.045) ng/ml Total Protein (6.4-8.2) gm/dl Albumin (3.4-5.0) gm/dl Globulin (2.5-4.0) gm/dl Albumin/Globulin Ratio (0.9-2) Lipase (73-393) U/L Hepatitis C Ab Screen (Neg) Imaging Data Radiologist's Impression: Radiology results as stated below per my review and the radiologist's interpretation: CT chest wo con CLINICAL HISTORY: 73 years-old Female presenting with Suspect foreign body in Rt lung. TECHNIQUE: Multidetector CT imaging of the chest was performed without the use of intravenous contrast. IV contrast: None. One or more dose lowering techniques were used consistent with the principles of ALARA (as low as reasonably achievable), including automatic exposure control, mA or kV adjustment to individual patient size, and/or use of iterative reconstruction. COMPARISON: Chest x-ray from 09/14/2017. CT DOSE (mGy.cm): The estimated cumulative dose is 405.04 mGy.cm. FINDINGS: Acid Tank Liner topogram: Unremarkable. Soft tissues: Normal thyroid and thoracic inlet. No axillary, supraclavicular, mediastinal, or hilar lymphadenopathy. Atherosclerosis of the aorta. Normal h eart size. Coronary artery calcification. No pericardial or pleural effusion. Upper abdomen normal. Lungs and airways: No pneumothorax. Filling defect with angulated margins consistent with an aspirated foreign body in the right lower lobe bronchus (series 4 image 136). Distal bronchi are patent. Pulmonary arteries are not significantly enlarged relative to adjacent bronchi. No interlobular septal thickening. Bandlike opacities in the right lower lobe in a dependent distribution and to a lesser extent in the left lower lobe. Polygonal fissural 6 mm right middle lobe nodule (series 4 image 207). Musculoskeletal: Normal osseous structures. IMPRESSION: 1. Foreign body within the right lower lobe bronchus. Resulting bibasilar atelectasis, right greater than left. 2. 6 mm right middle lobe nodule. Follow-up per Fleischner Society 2017 recommendations below. The report will be called/faxed according to standard departmental protocol. Summary of Fleischner Society 2017 Recommendations (H Yudith et al. Guidelines for management of incidental pulmonary nodules detected on CT images: From the Fleischner Society 2017. Radiology 2017; 284: 228-243.) SOLID NODULES Single nodule; size < 6 mm * Low risk patients: No routine follow-up * High risk patients: Optional CT at 12 months Single nodule; size 6-8 mm * Low risk patients: CT at 6-12 months, then consider CT at 18-24 months * High risk patients: CT at 6-12 months, then at 18-24 months Single nodule; size > 8 mm * Either low or high risk patients: Considered CT at 3 months, PET/CT, or tissue sampling Multiple nodules; size < 6 mm * Low risk patients: No routine follow up * High risk patients: Optional CT at 12 months Multiple nodules; size 6-8 mm * Low risk patients: CT at 3-6 months, then consider CT at 18-24 months * High risk patients: CT at 3-6 months, then at 18-24 months Multiple nodules; size > 8 mm * Low risk patients: CT at 3-6 months, then consider at 18-24 months * High risk patients: CT at 3-6 months, then at 18-24 months SUBSOLID NODULES Single ground-glass nodule * Nodule size < 6 mm: No routine follow-up * Nodule size > or = 6 mm: CT at 6-12 months to confirm persistence, then CT every 2 years until 5 years Single part-solid nodule * Nodule size < 6 mm: No routine follow-up * Nodules size > or = 6 mm: CT at 3-6 months to confirm persistence. If unchanged and solid component remains < 6 mm, annual CT should be performed for 5 years Multiple nodules * Nodule size < 6 mm: CT at 3-6 months. If stable, consider CT at 2 and 4 years. * Nodules size > or = 6 mm: CT at 3-6 months. Subsequent management based on the most suspicious nodule(s) NOTE: 1) These guidelines apply to incidental nodules. These guidelines do NOT apply to patients younger than 35 years, immunocompromised patients, or patients with cancer. 2) Risk categories: * Low risk patients: Minimal or absent history of smoking and/or other known risk factors * High risk patients: History of smoking, exposure to other carcinogens, emphysema, fibrosis, upper lobe location, family history of lung cancer, etc. 3) If a nodule up to 8 mm is partly solid or is ground glass, further follow-up is required after 24 months to exclude possible slow growing adenocarcinoma. Electronically signed by: Scotty Parker M.D. 03/05/2019 9:32 PM ECG Data Attestation: I personally reviewed and interpreted this ECG as follows: Indication: SOB/dyspnea Rate (beats per minute): 82 Rhythm: normal sinus Findings: no ST depression and no ST elevation Blood Pressure Blood Pressure Findings: Elevated blood pressure Blood Pressure Disposition: further management by hospitalist ESME Romo This is a 73-year-old female who presents emergency department complaining of chest pain as well as shortness of breath after choking on a carrot. Based on physical examination I am concerned that the patient may have aspirated the care into her right mainstem bronchus. For this reason she was sent for CAT scan of the chest. This is concerning for a foreign object at the right mainstem bronch us. Because of this I did discuss the case with the vessel builder on-call who asked that the patient be admitted to the intensive care unit as the patient is stable. The patient was made n.p.o. and will be scoped in the morning. In the meantime the patient was given breathing treatments as well as Dilaudid for her pain. She was also given Ativan. Patient and family were in agreement with the treatment plan. Impression & Plan Inhaled foreign object, Aspiration into airway Discharge Plan Visit Data *Final* Discharge Date/Time: 03/06/19 00:14 Chief Complaint: Cough Stated Complaint: ASPIRATED ON PIECE OF CARROT ED Provider: Sampson Elizalde Discharge Problem: Inhaled foreign object, Aspiration into airway Patient Disposition: Admitted As Inpatient Discharge Instructions Interventions: ED Discharge Assessment Last Done: 03/06/19 00:14 Discharge Problem: Inhaled foreign object Qualifiers: Encounter type: initial encounter Qualified Code(s): T17.908A - Unspecified foreign body in respiratory tract, part unspecified causing other injury, initial encounter Aspiration into airway Qualifiers: Encounter type: initial encounter Qualified Code(s): T17.908A - Unspecified foreign body in respiratory tract, part unspecified causing other injury, initial encounter The scribe's documentation has been prepared under my direction and personally reviewed by me in its entirety. I confirm that the note above accurately r eflects all work, treatment, procedures, and medical decision making performed by me.
== END 2019-03-06 17:45 | disposition home or self-care (01) | DRG 165 ==
LOC: ED 19:39 → 1E 23:52 → SUATTDRO 23:52 → 1E 03-06 00:14